=== PATIENT | male | born 1950 | race African-American/Black ===

== ENCOUNTER 2016-12-05 03:03 | Emergency (ER) | payer SELFPAY ==
[~2016-12-05] VITALS: Ht 170.2 cm; Wt 81.6 kg
[~2016-12-05 03:03] MED LIST: AMLODIPINE5 MG PO; ANTIVERT PO; ASPIRIN LOW DOS81 M2 PO; FLEXERIL OR; FLEXERIL PO; FLEXERIL10 MG OR; FLEXERIL10 MG PO; FLEXERIL5 M1 PO; FLEXERIL5 MG PO; LIPITOR20 MG PO; LISINOPRIL10 MG PO; LISINOPRIL2.5 MG; LORTAB 7.5 OR; MECLIZINE25 MG PO; NAPROSYN375 MG PO; NAPROSYN500 MG OR; NAPROSYN500 MG PO; NO HOME MEDS; ONDANSETRON4 MG PO
[2016-12-05 04:47] LABS: HEMOGLOBIN 14.6 g/dl (14.0-18.0); IMMATURE GRANULOCYTES 0.2 % (0.0-1.0); MEAN CELL VOLUME 85.1 fL CALC (80.0-100.0); MEAN CORPUSCULAR HGB 27.6 pG CALC (26.0-32.0); MEAN CORPUSCULAR HGB CONC 32.4 g/L CALC (32.0-36.0); NEUT# 1.92 thou/uL (1.82-7.42); RED BLOOD COUNT 5.29 mill/uL (4.70-6.10); RED CELL DISTRI WIDTH 14.2 % (11.5-15.5)
[2016-12-05 05:01] LABS: ALBUMIN 4.3 g/dL (3.2-5.0); ALKALINE PHOSPHATASE 52 u/l (38-126); ANION GAP 15 (6-22 (CALC)); BUN 15 mg/dL (8-23); BUN/CREATININE RATIO 15 (12-20 (CALC)); CALCIUM 9.1 mg/dL (8.4-10.2); CARBON DIOXIDE 27 mmol/l (22-30); CHLORIDE 107 mmol/l (95-108); GFR > 60 ML/MIN (>=60 (CALC)); GFR FOR AFR.AMER. > 60 ML/MIN (>=60 (CALC)); GLUCOSE 85 mg/dL (82-115); POTASSIUM 4.1 mmol/l (3.5-5.1); SGOT/AST 32 u/l (19-48); SGPT/ALT 35 u/l (11-66); SODIUM 145 mmol/l (137-146); TOTAL PROTEIN 7.4 g/dL (6.3-8.2)
[2016-12-05] MEDS ORDERED: ULTRAM50 M1 PO (06:54)
[2016-12-05 06:57] VITALS: BP 135/66
== END 2016-12-05 06:58 | disposition home or self-care (01) | DRG 103 ==
LOC: ED 03:03
PROVIDERS: Emergency Medicine
DX: R51 Headache (principal); I10 Essential (primary) hypertension; M54.5 Low back pain

== ENCOUNTER 2016-12-13 21:02 | Emergency (ER) | payer SELFPAY ==
[~2016-12-13] VITALS: Ht 170.2 cm; Wt 87.2 kg
[~2016-12-13 21:02] MED LIST changes: +ULTRAM50 M1 PO
[2016-12-13] MEDS ORDERED: LISINOPRIL10 MG PO ×2 (21:35→21:51)
[2016-12-13] MEDS ORDERED: ANTIVERT PO (21:51)
[2016-12-13 22:02] VITALS: BP 131/89
== END 2016-12-13 22:02 | disposition home or self-care (01) | DRG 149 ==
LOC: ED 21:02
DX: R42 Dizziness and giddiness (principal); I10 Essential (primary) hypertension; Z76.0 Encounter for issue of repeat prescription

== ENCOUNTER 2017-06-27 06:07 | Observation (INO) | payer OTHER ==
[~2017-06-27] VITALS: Ht 160 cm; Wt 84.4 kg
[2017-06-27] MEDS ORDERED: B/P MED (06:31)
[2017-06-27] MEDS ORDERED: ARTHRITIS MED (06:31)
[2017-06-27 07:08] LABS: HEMATOCRIT 40.7 % (39.0-50.0); IMMATURE GRANULOCYTES 0.2 % (0.0-1.0); MEAN CELL VOLUME 87.5 fL CALC (80.0-100.0); MEAN CORPUSCULAR HGB CONC 31.9 g/L CALC (32.0-36.0); NEUT# 1.98 thou/uL (1.82-7.42); RED BLOOD COUNT 4.65 mill/uL (4.70-6.10); RED CELL DISTRI WIDTH 14.6 % (11.5-15.5)
[2017-06-27 07:23] LABS: ALBUMIN 3.8 g/dL (3.2-5.0); ALKALINE PHOSPHATASE 78 u/l (38-126); AMYLASE 60 u/l (30-110); ANION GAP 15 (6-22 (CALC)); BUN 14 mg/dL (8-23); BUN/CREATININE RATIO 16 (12-20 (CALC)); CARBON DIOXIDE 27 mmol/l (22-30); CHLORIDE 107 mmol/l (95-108); CREATININE 0.9 mg/dL (0.7-1.3); GFR > 60 ML/MIN (>=60 (CALC)); GFR FOR AFR.AMER. > 60 ML/MIN (>=60 (CALC)); LIPASE 92 u/l (23-300); POTASSIUM 3.6 mmol/l (3.5-5.1); SGOT/AST 54 u/l (19-48); SGPT/ALT 96 u/l (11-66); SODIUM 145 mmol/l (137-146); TOTAL PROTEIN 7.2 g/dL (6.3-8.2)
[2017-06-27 07:35] LABS: MYOGLOBIN 41 ng/mL (0 - 121)
[2017-06-27 09:04] VITALS: BP 163/112
[2017-06-27] MEDS ORDERED: LISINOPRIL10 MG PO (09:33)
[2017-06-27] MEDS ORDERED: DICLOFENAC SODI75 MG PO (09:36)
[2017-06-27 12:18] VITALS: BP 130/58
[2017-06-27 15:41] VITALS: BP 142/86; BP 94/64
[2017-06-27 19:00] VITALS: BP 149/82
[2017-06-27 23:57] VITALS: BP 131/75
[2017-06-28 05:00] VITALS: BP 128/84
[2017-06-28 05:03] LABS: HEMATOCRIT 44.4 % (39.0-50.0); HEMOGLOBIN 14.2 g/dl (14.0-18.0); IMMATURE GRANULOCYTES 0.2 % (0.0-1.0); MEAN CORPUSCULAR HGB 27.5 pG CALC (26.0-32.0); NEUT# 2.85 thou/uL (1.82-7.42); RED BLOOD COUNT 5.16 mill/uL (4.70-6.10); RED CELL DISTRI WIDTH 14.1 % (11.5-15.5)
[2017-06-28 05:15] LABS: ANION GAP 14 (6-22 (CALC)); BUN 14 mg/dL (8-23); BUN/CREATININE RATIO 16 (12-20 (CALC)); CALCULATED LDLCHOLESTEROL 164 mg/dL (62-129 (CALC)); CARBON DIOXIDE 32 mmol/l (22-30); CHLORIDE 99 mmol/l (95-108); CHOLESTEROL HDL RATIO 4.5 (<4.4 (CALC)); CREATININE 0.9 mg/dL (0.7-1.3); GFR > 60 ML/MIN (>=60 (CALC)); GFR FOR AFR.AMER. > 60 ML/MIN (>=60 (CALC)); HDL CHOLESTEROL 51 mg/dL (>=40); POTASSIUM 3.6 mmol/l (3.5-5.1); SODIUM 142 mmol/l (137-146); TOTAL CHOLESTEROL 229 mg/dl (0-199); TOTAL TRIGLYCERIDES 72 mg/dl (30-149); VLDL CHOLESTROL 14 mg/dl (4-45 (CALC))
[2017-06-28 08:24] VITALS: BP 126/64
[2017-06-28 11:00] VITALS: BP 127/79
[2017-06-28 16:00] VITALS: BP 139/85
[2017-06-28 19:00] VITALS: BP 140/85
[2017-06-29] VITALS: BP 137/77
[2017-06-29 04:49] VITALS: BP 123/70
[2017-06-29 05:19] LABS: ANION GAP 15 (6-22 (CALC)); BUN 17 mg/dL (8-23); BUN/CREATININE RATIO 21 (12-20 (CALC)); CARBON DIOXIDE 31 mmol/l (22-30); CHLORIDE 99 mmol/l (95-108); CREATININE 0.8 mg/dL (0.7-1.3); GFR > 60 ML/MIN (>=60 (CALC)); GFR FOR AFR.AMER. > 60 ML/MIN (>=60 (CALC)); POTASSIUM 3.5 mmol/l (3.5-5.1); SODIUM 141 mmol/l (137-146)
[2017-06-29 05:26] LABS: HEMATOCRIT 49.3 % (39.0-50.0); MEAN CELL VOLUME 84.7 fL CALC (80.0-100.0); MEAN CORPUSCULAR HGB 27.5 pG CALC (26.0-32.0); MEAN CORPUSCULAR HGB CONC 32.5 g/L CALC (32.0-36.0); RED BLOOD COUNT 5.82 mill/uL (4.70-6.10); RED CELL DISTRI WIDTH 13.9 % (11.5-15.5)
[2017-06-29 08:35] VITALS: BP 146/82
[2017-06-29 12:00] VITALS: BP 124/78
== END 2017-06-29 15:19 | disposition short-term general hospital (02) | DRG 293 ==
LOC: ED 06:07 → ED-I 08:18 → ED 08:32 → MS2 08:33
PROVIDERS: Emergency Medicine; ADMIT Internal Medicine; ATTEND Internal Medicine
PROC: 3E0234Z Introduction of Serum, Toxoid and Vaccine into Muscle, Percutaneous Approach (ICD-10-PCS; principal; 2017-06-28)
DX: I11.0 Hypertensive heart disease with heart failure (principal); E78.5 Hyperlipidemia, unspecified; I50.21 Acute systolic (congestive) heart failure; R07.9 Chest pain, unspecified; M19.90 Unspecified osteoarthritis, unspecified site; F10.20 Alcohol dependence, uncomplicated; Z23 Encounter for immunization; Z91.14 Patient's other noncompliance with medication regimen
CPT/HCPCS: G0378

== ENCOUNTER 2017-11-26 13:30 | Emergency (ER) | payer SELFPAY ==
[~2017-11-26] VITALS: Ht 160 cm; Wt 81.0 kg
[~2017-11-26 13:30] MED LIST changes: +ARTHRITIS MED; +B/P MED; +DICLOFENAC SODI75 MG PO
[2017-11-26] MEDS ORDERED: FLEXERIL PO (14:06)
[2017-11-26] MEDS ORDERED: TORADOL PO (14:06)
[2017-11-26] MEDS ORDERED: MEDDOSEPAK PO (14:06)
[2017-11-26 14:20] VITALS: BP 138/86
== END 2017-11-26 14:20 | disposition home or self-care (01) | DRG 563 ==
LOC: ED 13:30
DX: S39.012A Strain of muscle, fascia and tendon of lower back, initial encounter (principal); I10 Essential (primary) hypertension; E78.5 Hyperlipidemia, unspecified; M19.90 Unspecified osteoarthritis, unspecified site; X50.0XXA Overexertion from strenuous movement or load, initial encounter; Y93.B3 Activity, free weights; Y92.39 Other specified sports and athletic area as the place of occurrence of the external cause

== ENCOUNTER 2018-04-14 06:18 | Emergency (ER) | payer SELFPAY ==
[~2018-04-14] VITALS: Ht 170.2 cm; Wt 77.2 kg
[~2018-04-14 06:18] MED LIST changes: +MEDDOSEPAK PO; +TORADOL PO
[2018-04-14] MEDS ORDERED: TORADOL PO (06:52)
[2018-04-14 07:17] VITALS: BP 146/75
== END 2018-04-14 07:19 | disposition home or self-care (01) | DRG 563 ==
LOC: ED 06:18
DX: S39.012A Strain of muscle, fascia and tendon of lower back, initial encounter (principal); I10 Essential (primary) hypertension; M19.90 Unspecified osteoarthritis, unspecified site; E78.5 Hyperlipidemia, unspecified; X58.XXXA Exposure to other specified factors, initial encounter

== ENCOUNTER 2018-07-26 08:27 | Emergency (ER) | payer SELFPAY ==
[~2018-07-26] VITALS: Ht 170.2 cm; Wt 80.0 kg
[2018-07-26] MEDS ORDERED: CYCLOBENZAPR5 MG PO (08:40)
[2018-07-26] MEDS ORDERED: MOTRIN400 MG PO (08:40)
[2018-07-26 09:06] VITALS: BP 128/73
== END 2018-07-26 09:12 | disposition home or self-care (01) | DRG 563 ==
LOC: ED 08:27
DX: S39.012A Strain of muscle, fascia and tendon of lower back, initial encounter (principal); I10 Essential (primary) hypertension; X58.XXXA Exposure to other specified factors, initial encounter

== ENCOUNTER 2018-10-15 08:49 | Emergency (ER) | payer SELFPAY ==
[~2018-10-15] VITALS: Ht 170.2 cm; Wt 80.0 kg
[~2018-10-15 08:49] MED LIST changes: +CYCLOBENZAPR5 MG PO; +MOTRIN400 MG PO
[2018-10-15 09:23] LABS: HEMATOCRIT 24.8 % (39.0-50.0); HEMOGLOBIN 7.7 g/dl (14.0-18.0); IMMATURE GRANULOCYTES 0.3 % (0.0-5.0); MEAN CELL VOLUME 88.9 fL CALC (80.0-100.0); MEAN CORPUSCULAR HGB 27.6 pG CALC (26.0-32.0); NEUT# 3.63 thou/uL (1.82-7.42); RED BLOOD COUNT 2.79 mill/uL (4.70-6.10); RED CELL DISTRI WIDTH 16.1 % (11.5-15.5)
[2018-10-15 10:04] LABS: ALBUMIN 3.8 g/dL (3.2-5.0); ALKALINE PHOSPHATASE 54 u/l (38-126); ANION GAP 11 (6-22 (CALC)); BUN 14 mg/dL (8-23); BUN/CREATININE RATIO 16 (12-20 (CALC)); CARBON DIOXIDE 28 mmol/l (22-30); CHLORIDE 107 mmol/l (95-108); CREATININE 0.9 mg/dL (0.7-1.3); ETHYL ALCOHOL 0 mg/dl (0-30); GFR > 60 ML/MIN (>=60 (CALC)); GFR FOR AFR.AMER. > 60 ML/MIN (>=60 (CALC)); LIPASE 181 u/l (23-300); POTASSIUM 4.2 mmol/l (3.5-5.1); SGOT/AST 44 u/l (19-48); SODIUM 141 mmol/l (137-146); TOTAL PROTEIN 6.6 g/dL (6.3-8.2)
[2018-10-15 10:06] LABS: BARBITURATES NEGATIVE (NEGATIVE); COCAINE NEGATIVE (NEGATIVE); METHADONE NEGATIVE (NEGATIVE); OXCYCODONE NEGATIVE (NEGATIVE); TETRAHYDROCANNABIONOL NEGATIVE (NEGATIVE); TRICYLIC ANTIDEPRESSANTS NEGATIVE (NEGATIVE)
[2018-10-15 10:07] LABS: BILIRUBIN, TOTAL 0.5 mg/dL (0.0-1.4)
[2018-10-15 11:36] LABS: HEMATOCRIT 24.3 % (39.0-50.0); HEMOGLOBIN 7.5 g/dl (14.0-18.0); IMMATURE GRANULOCYTES 0.3 % (0.0-5.0); MEAN CORPUSCULAR HGB 27.5 pG CALC (26.0-32.0); MEAN CORPUSCULAR HGB CONC 30.9 g/L CALC (32.0-36.0); NEUT# 3.74 thou/uL (1.82-7.42); RED BLOOD COUNT 2.73 mill/uL (4.70-6.10)
[2018-10-15 12:15] LABS: INTERNATIONAL NORMALIZED RATIO 1.1 RATIO (0.7-1.3); PROTHROMBIN TIME 11.1 SECONDS (9.0-12.5)
[2018-10-15 12:55] VITALS: BP 181/86
== END 2018-10-15 12:54 | disposition short-term general hospital (02) | DRG 812 ==
LOC: ED 08:49 → ED-I 11:50 → ED 12:54
PROVIDERS: Emergency Medicine
DX: D64.9 Anemia, unspecified (principal); R07.9 Chest pain, unspecified; I10 Essential (primary) hypertension
CPT/HCPCS: S0164

== ENCOUNTER 2018-12-16 07:01 | Emergency (ER) | payer SELFPAY ==
[~2018-12-16] VITALS: Ht 170.2 cm; Wt 86.0 kg
[2018-12-16] MEDS ORDERED: NAPROXEN500 MG PO (07:28)
[2018-12-16] MEDS ORDERED: FLEXERIL PO (07:28)
[2018-12-16 07:36] VITALS: BP 127/85
== END 2018-12-16 07:49 | disposition home or self-care (01) | DRG 552 ==
LOC: ED 07:01
DX: S33.5XXA Sprain of ligaments of lumbar spine, initial encounter (principal); I10 Essential (primary) hypertension; X58.XXXA Exposure to other specified factors, initial encounter

== ENCOUNTER 2019-04-20 | Observation (INO) | payer SELFPAY ==
[2019-04-19 22:20] LABS: IMMATURE GRANULOCYTES 0.3 % (0.0-5.0); MEAN CELL VOLUME 86.2 fL CALC (80.0-100.0); MEAN CORPUSCULAR HGB 26.9 pG CALC (26.0-32.0); MEAN CORPUSCULAR HGB CONC 31.2 g/L CALC (32.0-36.0); NEUT# 4.2 thou/uL (1.82-7.42); RED BLOOD COUNT 4.5 mill/uL (4.70-6.10); RED CELL DISTRI WIDTH 14.6 % (11.5-15.5)
[2019-04-19 22:21] LABS: HEMATOCRIT 38.8 % (39.0-50.0); HEMOGLOBIN 12.1 g/dl (14.0-18.0)
--- NOTE | 2019-04-19 22:29 | NUR ---
PT GIVEN BLANKET AND CALL ROBERTO. PLAN OF CARE UPDATED WITH PT
[2019-04-19 22:39] LABS: ACT PARTIAL THROMBO TIME 26.5 SECONDS (20.0-32.5); ALKALINE PHOSPHATASE 87 u/l (38-126); AMYLASE 48 u/l (30-110); ANION GAP 9 (6-22 (CALC)); BILIRUBIN, TOTAL 0.7 mg/dL (0.0-1.4); BUN 15 mg/dL (8-23); BUN/CREATININE RATIO 17 (12-20 (CALC)); CARBON DIOXIDE 29 mmol/l (22-30); CHLORIDE 106 mmol/l (95-108); CREATININE 0.9 mg/dL (0.7-1.3); GFR > 60 ML/MIN (>=60 (CALC)); GFR FOR AFR.AMER. > 60 ML/MIN (>=60 (CALC)); INTERNATIONAL NORMALIZED RATIO 1.1 RATIO (0.7-1.3); LIPASE 79 u/l (23-300); POTASSIUM 4.2 mmol/l (3.5-5.1); PROTHROMBIN TIME 11.6 SECONDS (9.0-12.5); SGOT/AST 55 u/l (19-48); SODIUM 140 mmol/l (137-146); TOTAL PROTEIN 6.9 g/dL (6.3-8.2)
[2019-04-19 22:51] LABS: MYOGLOBIN 42 ng/mL (0 - 121)
--- NOTE | 2019-04-19 23:05 | NUR ---
PT DENIES COMPLAINTS. RESPS EVEN, UNALBBORED.
[2019-04-20] VITALS (9 sets, daily range): BP systolic 119–156; BP diastolic 62–90
[~2019-04-20] MED LIST changes: +ATORVASTATIN CA40 MG PO; +IRON (FERROUS S50 MG PO; +NAPROXEN500 MG PO; +SPIRONOLACT25 MG PO
--- NOTE | 2019-04-20 00:25 | NUR ---
PT DENIES COMPLAINTS. PT STATES HIS PAIN IS GONE AND HE FEELS MUCH BETTER. PT ABLE TO URINATE 800CC
--- NOTE | 2019-04-20 02:14 | NUR ---
PT CONTINUES TO DENY COMPLAINTS
--- NOTE | 2019-04-20 03:05 | NUR ---
PATIENT ARRIVED VIA WHEELCHAIR. HE ARRIVED AT 0305. RESP EVEN AND UNLABORED. NO S/S OF DISTRESS NOTED. PATIENT ORIENTED TO ROOM, CALL LIGHT, AND TV. PLAN OF CARE DISCUSSED. PATIENT INFORMED TO CALL WITH ANY QUESTIONS OR CONCERNS. FALL PRECAUTIONS IN PLACE.
--- NOTE | 2019-04-20 07:10 | NUR ---
DR STARKS NOTIFIED OF ELEVATED TROP 0.133. REPEAT EKG ORDERED. WAITING ON NEW ORDERS.
--- NOTE | 2019-04-20 10:55 | NUR ---
DAVID MILLS, @BEDSIDE ASSESSING PT.
--- NOTE | 2019-04-20 12:49 | NUR ---
DR STARKS @BEDSIDE ASSESSING PT.
[2019-04-20] MEDS ORDERED: CARVEDILOL6.25 MG PO ×2 (12:56→12:57)
[2019-04-20] MEDS ORDERED: ALDACTONE25 MG PO (12:56)
[2019-04-20] MEDS ORDERED: ATORVASTATIN CA40 MG PO (12:57)
[2019-04-20] MEDS ORDERED: SPIRONOLACT25 MG PO (12:58)
[2019-04-20] MEDS ORDERED: OMEPRAZOLE20 MG PO (12:59)
--- NOTE | 2019-04-20 13:37 | NUR ---
PT GIVEN TRAY FROM [employer] FOR LUNCH.
--- NOTE | 2019-04-20 14:00 | NUR ---
PT EDUCATED ON DC INSTRUCTIONS, INCLUDING 1 NEW RX, 3 REFILL RX, & 2 STOP RX. IV DC'D, TIP INTACT, DRESSING APPLIED.
--- NOTE | 2019-04-20 14:14 | NUR ---
PT DC FROM ICU BY RICARDO WITH STAFF IN STABLE CONDITION, WITH ALL BELONGINGS.
== END 2019-04-20 14:14 | disposition home or self-care (01) | DRG 313 ==
PROVIDERS: Emergency Medicine; ADMIT Internal Medicine
DX: R07.9 Chest pain, unspecified (principal); I10 Essential (primary) hypertension; E78.5 Hyperlipidemia, unspecified; T46.5X6A Underdosing of other antihypertensive drugs, initial encounter; Z91.128 Patient's intentional underdosing of medication regimen for other reason
CPT/HCPCS: Q9967; S0164

== ENCOUNTER 2019-06-10 | Emergency (ER) | payer SELFPAY ==
[~2019-06-10] MED LIST changes: +ALDACTONE25 MG PO; +CARVEDILOL6.25 MG PO; +OMEPRAZOLE20 MG PO
[2019-06-10 19:34] LABS: HEMATOCRIT 41.5 % (39.0-50.0); HEMOGLOBIN 12.9 g/dl (14.0-18.0); IMMATURE GRANULOCYTES 0.2 % (0.0-5.0); MEAN CELL VOLUME 85.2 fL CALC (80.0-100.0); MEAN CORPUSCULAR HGB 26.5 pG CALC (26.0-32.0); MEAN CORPUSCULAR HGB CONC 31.1 g/dL CAL (32.0-36.0); NEUT# 3.12 thou/uL (1.82-7.42); RED BLOOD COUNT 4.87 mill/uL (4.70-6.10); RED CELL DISTRI WIDTH 14.1 % (11.5-15.5)
[2019-06-10 19:44] LABS: INTERNATIONAL NORMALIZED RATIO 1.3 RATIO (0.7-1.3); PROTHROMBIN TIME 13.5 SECONDS (9.0-12.5)
[2019-06-10 19:45] LABS: ALBUMIN 4.5 g/dL (3.2-5.0); ALKALINE PHOSPHATASE 104 u/l (38-126); ANION GAP 14 (6-22 (CALC)); BUN 16 mg/dL (8-23); BUN/CREATININE RATIO 14 (12-20 (CALC)); CARBON DIOXIDE 24 mmol/l (22-30); CHLORIDE 105 mmol/l (95-108); CREATININE 1.1 mg/dL (0.7-1.3); GFR > 60 ML/MIN (>=60 (CALC)); GFR FOR AFR.AMER. > 60 ML/MIN (>=60 (CALC)); POTASSIUM 4.3 mmol/l (3.5-5.1); SGOT/AST 52 u/l (19-48); SODIUM 139 mmol/l (137-146); TOTAL PROTEIN 8.2 g/dL (6.3-8.2)
[2019-06-10 19:46] LABS: BILIRUBIN, TOTAL 1.2 mg/dL (0.0-1.4)
[2019-06-10 19:58] LABS: MYOGLOBIN 49 ng/mL (0 - 121)
[2019-06-10] MEDS ORDERED: LASIX 20 MG TAB20 MG PO (23:32)
== END 2019-06-11 00:27 | disposition home or self-care (01) | DRG 293 ==
PROVIDERS: Emergency Medicine
DX: I11.0 Hypertensive heart disease with heart failure (principal); I50.9 Heart failure, unspecified

== ENCOUNTER 2019-07-24 08:32 | Emergency (ER) | payer SELFPAY ==
[~2019-07-24 08:32] MED LIST changes: +LASIX 20 MG TAB20 MG PO
[2019-07-24] MEDS ORDERED: VOLTAREN1%GEL TOP (09:13)
[2019-07-24] MEDS ORDERED: MOTRIN400 MG PO (09:18)
[2019-07-24 09:24] VITALS: BP 118/82
== END 2019-07-24 09:35 | disposition home or self-care (01) | DRG 552 ==
LOC: ED 08:32
DX: M54.5 Low back pain (principal); I10 Essential (primary) hypertension

== ENCOUNTER 2020-01-01 13:35 | Emergency (ER) | payer SELFPAY ==
[~2020-01-01] VITALS: Ht 170.2 cm; Wt 88.0 kg
[~2020-01-01 13:35] MED LIST changes: +VOLTAREN1%GEL TOP
[2020-01-01] MEDS ORDERED: NAPROXEN500 MG PO (14:23)
[2020-01-01 14:29] VITALS: BP 125/62
== END 2020-01-01 14:31 | disposition home or self-care (01) | DRG 605 ==
LOC: ED 13:35
DX: S20.211A Contusion of right front wall of thorax, initial encounter (principal); I10 Essential (primary) hypertension; E78.5 Hyperlipidemia, unspecified; Y04.2XXA Assault by strike against or bumped into by another person, initial encounter; Y92.009 Unspecified place in unspecified non-institutional (private) residence as the place of occurrence of the external cause

== ENCOUNTER 2020-02-10 03:41 | Observation (INO) | payer SELFPAY ==
[~2020-02-10] VITALS: Ht 170.2 cm; Wt 89.2 kg
--- NOTE | 2020-02-10 03:45 | NUR ---
TO ROOM 12 FOR TRIAGE AT BEDSIDE. NAD PT IS A POOR HISTORIAN.
--- NOTE | 2020-02-10 04:10 | NUR ---
A/O M WITH C/O BURPING INTERMITTENTLY ONSET LAST PM DENIES SOB NO NAUSEA NO SWEATS W/D SKIN SR NO ST T CHANGES NO ECTOPIC BEATS
[2020-02-10 04:27] LABS: URINE BILIRUBIN - DIPSTICK NEGATIVE (NEGATIVE); URINE BLOOD DIPSTICK NEGATIVE (NEGATIVE); URINE COLOR YELLOW; URINE GLUCOSE - DIPSTICK NEGATIVE (NEGATIVE); URINE KETONE NEGATIVE (NEGATIVE); URINE LEUK ESTERASE NEGATIVE (NEGATIVE); URINE NITRITE - DIPSTICK NEGATIVE (Negative); URINE PROTEIN - DIPSTICK NEGATIVE (NEG-TRACE); URINE UROBILINOGEN - DIPSTICK 0.2 E.U./dL (0.2)
[2020-02-10 04:32] LABS: IMMATURE GRANULOCYTES 0.2 % (0.0-5.0); MEAN CORPUSCULAR HGB 27.6 pG CALC (26.0-32.0); MEAN CORPUSCULAR HGB CONC 32.1 g/dL CAL (32.0-36.0); NEUT# 2.19 thou/uL (1.82-7.42); RED BLOOD COUNT 4.49 mill/uL (4.70-6.10); RED CELL DISTRI WIDTH 13.7 % (11.5-15.5)
[2020-02-10 04:34] LABS: HEMATOCRIT 38.6 % (39.0-50.0); HEMOGLOBIN 12.4 g/dl (14.0-18.0)
[2020-02-10 04:41] LABS: ALBUMIN 4.1 g/dL (3.2-5.0); ALKALINE PHOSPHATASE 58 u/l (38-126); AMYLASE 76 u/l (30-110); ANION GAP 7 (6-22 (CALC)); BILIRUBIN, TOTAL 0.6 mg/dL (0.0-1.4); BUN 17 mg/dL (8-23); BUN/CREATININE RATIO 19 (12-20 (CALC)); CARBON DIOXIDE 31 mmol/l (22-30); CHLORIDE 105 mmol/l (95-108); CREATININE 0.9 mg/dL (0.7-1.3); GFR > 60 ML/MIN (>=60 (CALC)); GFR FOR AFR.AMER. > 60 ML/MIN (>=60 (CALC)); LIPASE 116 u/l (23-300); POTASSIUM 4.4 mmol/l (3.5-5.1); SGOT/AST 40 u/l (19-48); SODIUM 138 mmol/l (137-146); TOTAL PROTEIN 6.8 g/dL (6.3-8.2)
[2020-02-10 04:53] LABS: MYOGLOBIN 54 ng/mL (0 - 121)
--- NOTE | 2020-02-10 05:40 | NUR ---
PT IS ASLEEP W/D SKIN SR NO ST T CHANGES NO ECTOPY
--- NOTE | 2020-02-10 06:30 | NUR ---
NASAL SWAB FOR CORONAVIRUS ANTIBOSDIES COLLECTED SR NO ST T CHANGES NO CP W/D SKIN
--- NOTE | 2020-02-10 06:53 | NUR ---
RECIEVED REPORT FROM MARILIN
--- NOTE | 2020-02-10 08:05 | NUR ---
TRANSPORTED PT TO MED SURG IN W/C STABLE AND IN NO DISTRESS. CARE ASSUMED TO DARRELL Admission Note Report Given to: DARRELL Transported by: X Wheelchair Stretcher Transported with: X Nurse Transporter X Patent IV O2 X Convict Guard Location: ICU X [facility]
--- NOTE | 2020-02-10 08:06 | NUR ---
GAVE REPORT TO DARRELL
[2020-02-10 08:20] VITALS: BP 107/53
--- NOTE | 2020-02-10 08:20 | NUR ---
RECIEVED REPORT FROM MANUEL HERNANDEZ. PT ARRIVED TO [facility] ROOM 268 VIA WHEELCHAIR ACCOMPAINED BY ER STAFF. INTRODUCED SELF TO PT AND DISCUSSED POC. PT IS A/O X3. ASSESSMENT AND VITALS COMPLETED. BP 107/53, HR 70, O2 97% ON ROOM AIR. RESPIRATIONS ARE EVEN AND UNLABORED WITH NO DISTRESS NOTED. LUNG SOUNDS ARE CLEAR. HEART RHYTHM IS NORMAL WITH TELE IN PLACE, SR PER ER MONITORING. BOWEL SOUND SARE ACTIVE IN ALL QUADRANTS, LAST REPORTED BM 02/09/2020. RADIAL AND PEDAL PULSES STRONG. #20G IN RAC FLUSHED, SITE APPEARS HEALTHY AND PATENT. JOSE HOSE APPLIED. SKIN IS WARM AND DRY WITH NO BREAK DOWN NOTED. PT DENIES ANY ALLERGIES, ALLERGY BAND APPLIED. PT DENIES ANY PAINS OR NEEDS AT THIS TIME. PT ORIENTED TO ROOM AND CALL LIGHT SYSTEM. ALL SAFETY PRECAUTIONS ARE IN PLACE WITH CALL LIGHT IN REACH. WILL CONTINUE TO MONITOR.
[2020-02-10 10:30] VITALS: BP 103/58
--- NOTE | 2020-02-10 11:37 | NUR ---
PT RESTING IN SEMI FOWLERS POSITION TAKING ON PHONE UPON ENTERING ROOM. RESPIRATIONS ARE EVEN AND UNLABORED ON ROOM AIR. TELE MONITORING IN PLACE. PT DENIES OF ANY PAINS OR DISCOMFORTS AT THIS TIME. ALL SAFTEY PRECAUTIONS ARE IN PLACE WTIH CALL LIGHT IN REACH. WILL CONTINUE TO MONITOR
--- NOTE | 2020-02-10 13:11 | NUR ---
LAB UNABLE TO OBTAIN BLOOD DRAW. MANAGER CARDIOVASCULAR ATTEMPTED. BLOOD OBTAINED. PT TOELRATED WELL. SENT TO LAB
--- NOTE | 2020-02-10 14:19 | NUR ---
PT REQUEST FOR HO TO BE TAKEN DOWN STAIRS. KEYS TO TAKEN DOWN BY STAFF.
[2020-02-10 15:00] VITALS: BP 117/67
--- NOTE | 2020-02-10 15:39 | NUR ---
PT LAYING IN LOW FOWLERS POSITION. RESPIRATIONS ARE EVEN AND UNLABORED ON ROOM AIR. TELE MONITORING IN PLACE. PT REQUEST ORANGE JUICE AND CRACKERS. PT DENIES OF ANY PAIN OR DISCOMFORTS AT THIS TIME. ALL SAFETY PRECAUTIONS ARE IN PLACE WITH CALL LIGHT IN REACH. WILL CONTINUE.
[2020-02-10 18:38] VITALS: BP 123/71
--- NOTE | 2020-02-10 20:00 | NUR ---
PT CALLED TO C/O EKG STICKERS THAT WERE LEFT ON HIM WERE BOTHERING HIM. I ASSISTED HIM IN REMOVING SAID STICKERS FOR COMFORT. ASSESSMENT COMPLETED AND SNACK PROVIDED PER REQUEST. CALL LIGHT AT SIDE AND PT ENCOURAGED TO CALL NEEDS ARISE.
--- NOTE | 2020-02-10 21:00 | NUR ---
PT MEDICATED ORDERS PROVIDE. DENIES ANY OTHER NEEDS. NO S/O DISTRESS NOTED. CALL LIGHT AT SIDE.
--- NOTE | 2020-02-10 22:31 | NUR ---
PT MEDICATED ORDERS PROVIDE. PT IS IN BED WITH LIGHTS OFF, TV ON LOW TALKING ON PHONE. DENIES ANY OTHER NEEDS AT THIS TIME. CALL LIGHT AT SIDE.
[2020-02-11 00:03] VITALS: BP 112/60
--- NOTE | 2020-02-11 01:26 | NUR ---
PT MEDICATED FOR SLEEP, DENIES ANY OTHER NEEDS AT THIS TIME. CALL LIGHT AT BEDSIDE.
[2020-02-11 04:04] VITALS: BP 134/72
--- NOTE | 2020-02-11 04:40 | NUR ---
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 PT DENIES ANY OTHER NEEDS. CALL LIGHT AT SIDE.
[2020-02-11 05:04] LABS: CHOLESTEROL HDL RATIO 3.3 (<4.4 (CALC)); MAGNESIUM 2.1 mg/dL (1.6-2.3)
--- NOTE | 2020-02-11 06:55 | NUR ---
REPORT RECEIVED FROM MANUEL RODRIGUEZ. PT RESTING IN BED NO S.S OF DISTRESS AT THIS TIME. SAFETY PRCAUTIONS IN PLACE. WILL CONTINUE TO MONITOR.
[2020-02-11] MEDS ORDERED: ALDACTONE25 MG PO (08:42)
[2020-02-11] MEDS ORDERED: ATORVASTATIN CA40 MG PO (08:42)
[2020-02-11] MEDS ORDERED: CARVEDILOL6.25 MG PO (08:43)
[2020-02-11] MEDS ORDERED: FUROSEMIDE20 MG PO (08:43)
[2020-02-11] MEDS ORDERED: LISINOPRIL10 MG PO (08:43)
[2020-02-11 08:54] VITALS: BP 132/91
--- NOTE | 2020-02-11 08:55 | NUR ---
PT RESTING IN BED, RESPIRATIONS ARE EVEN AND UNLABORED ON RA. LUNGS SOUND CLEAR. PEDAL PULSES ARE STRONG. PT DENIES ANY PAIN OR DISCOMFORT AT THIS TIME. SAFEY PRECAUTIONS IN PLACE. WILL CONTINUE TO MONITOR.
[2020-02-11] MEDS ORDERED: PROTONIX40 M2 PO (10:06)
[2020-02-11 11:00] VITALS: BP 115/56
--- NOTE | 2020-02-11 12:06 | NUR ---
PT SITTING ON THE EDGE OF THE BED, ALERT AND ORIENTED. PT PROVIDED WITH DISCHARGE PACKET. PT DENIES ANY QUESTIONS AT THIS TIME. TELE REMOVED. IV REMOVED CATHETER INTACT. SAFETY PRECAUTIONS IN PLACE. WILL CONTINUE TO MONITOR
--- NOTE | 2020-02-11 12:15 | NUR ---
Discharge instructions given. Patient verbalizes understanding of same. Discharged in stable condition via Wheelchair to Home with family. All belongings sent with pt.
== END 2020-02-11 12:10 | disposition home or self-care (01) | DRG 313 ==
LOC: ED 03:41 → ED-I 06:21 → ED 06:49 → MS2 06:50
PROVIDERS: Emergency Medicine; ADMIT Internal Medicine; ATTEND Internal Medicine
DX: R07.9 Chest pain, unspecified (principal); K21.9 Gastro-esophageal reflux disease without esophagitis; I10 Essential (primary) hypertension; E78.5 Hyperlipidemia, unspecified; Z79.899 Other long term (current) drug therapy; Z20.828 Contact with and (suspected) exposure to other viral communicable diseases
CPT/HCPCS: G0378; J1650; S0164

== ENCOUNTER 2020-04-14 14:40 | Emergency (ER) | payer SELFPAY ==
[~2020-04-14] VITALS: Ht 170.2 cm; Wt 86.4 kg
[~2020-04-14 14:40] MED LIST changes: +FUROSEMIDE20 MG PO; +PROTONIX40 M2 PO
[2020-04-14] MEDS ORDERED: NAPROXEN500 MG PO (15:46)
[2020-04-14] MEDS ORDERED: AMOXICILLIN500 MG PO (15:46)
[2020-04-14] MEDS ORDERED: CYCLOBENZAPRINE10 MG PO (15:46)
[2020-04-14 16:07] VITALS: BP 138/77
== END 2020-04-14 16:16 | disposition home or self-care (01) | DRG 552 ==
LOC: ED 14:40
DX: M47.816 Spondylosis without myelopathy or radiculopathy, lumbar region (principal); K08.89 Other specified disorders of teeth and supporting structures; I10 Essential (primary) hypertension; E78.5 Hyperlipidemia, unspecified

== ENCOUNTER 2020-08-17 11:05 | Emergency (ER) | payer MEDICAID ==
[~2020-08-17] VITALS: Ht 170.2 cm; Wt 81.8 kg
[~2020-08-17 11:05] MED LIST changes: +AMOXICILLIN500 MG PO; +CYCLOBENZAPRINE10 MG PO
[2020-08-17 12:07] LABS: HEMATOCRIT 39.1 % (39.0-50.0); HEMOGLOBIN 12.3 g/dl (14.0-18.0); MEAN CELL VOLUME 84.6 fL CALC (80.0-100.0); MEAN CORPUSCULAR HGB 26.6 pG CALC (26.0-32.0); MEAN CORPUSCULAR HGB CONC 31.5 g/dL CAL (32.0-36.0); NEUT# 3.36 thou/uL (1.82-7.42); RED BLOOD COUNT 4.62 mill/uL (4.70-6.10); RED CELL DISTRI WIDTH 14.4 % (11.5-15.5)
[2020-08-17 12:41] LABS: ALBUMIN 4.3 g/dL (3.2-5.0); ALKALINE PHOSPHATASE 68 u/l (38-126); ANION GAP 12 (6-22 (CALC)); BUN 18 mg/dL (8-23); BUN/CREATININE RATIO 16 (12-20 (CALC)); CARBON DIOXIDE 30 mmol/l (22-30); CHLORIDE 101 mmol/l (95-108); CREATININE 1.1 mg/dL (0.7-1.3); GFR > 60 ML/MIN (>=60 (CALC)); GFR FOR AFR.AMER. > 60 ML/MIN (>=60 (CALC)); LIPASE 148 u/l (23-300); POTASSIUM 4.6 mmol/l (3.5-5.1); SGOT/AST 41 u/l (19-48); SODIUM 139 mmol/l (137-146); TOTAL PROTEIN 7.8 g/dL (6.3-8.2)
[2020-08-17 12:47] LABS: BILIRUBIN, TOTAL 0.4 mg/dL (0.0-1.4)
[2020-08-17 13:10] LABS: URINE BILIRUBIN - DIPSTICK NEGATIVE (NEGATIVE); URINE BLOOD DIPSTICK NEGATIVE (NEGATIVE); URINE COLOR YELLOW; URINE GLUCOSE - DIPSTICK NEGATIVE (NEGATIVE); URINE KETONE NEGATIVE (NEGATIVE); URINE LEUK ESTERASE NEGATIVE (NEGATIVE); URINE PH 6.5 (4.5-8.0); URINE PROTEIN - DIPSTICK NEGATIVE (NEG-TRACE); URINE SPECIFIC GRAVITY 1.015; URINE UROBILINOGEN - DIPSTICK 0.2 E.U./dL (0.2)
[2020-08-17 13:12] LABS: URINE NITRITE - DIPSTICK NEGATIVE (Negative)
[2020-08-17] MEDS ORDERED: HYOSCYAMINE0.125 M3 PO (13:19)
[2020-08-17 13:57] VITALS: BP 115/65
== END 2020-08-17 13:58 | disposition home or self-care (01) | DRG 392 ==
LOC: ED 11:05
PROVIDERS: Family Medicine
DX: R10.84 Generalized abdominal pain (principal); I10 Essential (primary) hypertension; E78.5 Hyperlipidemia, unspecified
CPT/HCPCS: Q9967

== ENCOUNTER 2020-08-21 23:59 | Emergency (ER) | payer MEDICAID ==
[~2020-08-21] VITALS: Ht 170.2 cm; Wt 86.0 kg
[~2020-08-21 23:59] MED LIST changes: +HYOSCYAMINE0.125 M3 PO
[2020-08-22 01:01] LABS: HEMATOCRIT 34.1 % (39.0-50.0); HEMOGLOBIN 10.6 g/dl (14.0-18.0); IMMATURE GRANULOCYTES 0.1 % (0.0-5.0); MEAN CELL VOLUME 86.1 fL CALC (80.0-100.0); MEAN CORPUSCULAR HGB 26.8 pG CALC (26.0-32.0); MEAN CORPUSCULAR HGB CONC 31.1 g/dL CAL (32.0-36.0); NEUT# 3.56 thou/uL (1.82-7.42); RED BLOOD COUNT 3.96 mill/uL (4.70-6.10); RED CELL DISTRI WIDTH 14.5 % (11.5-15.5)
[2020-08-22 01:16] LABS: ALBUMIN 3.7 g/dL (3.2-5.0); ALKALINE PHOSPHATASE 46 u/l (38-126); AMYLASE 75 u/l (30-110); ANION GAP 12 (6-22 (CALC)); BILIRUBIN, TOTAL 0.3 mg/dL (0.0-1.4); BUN 18 mg/dL (8-23); BUN/CREATININE RATIO 17 (12-20 (CALC)); CARBON DIOXIDE 29 mmol/l (22-30); CHLORIDE 102 mmol/l (95-108); CREATININE 1.1 mg/dL (0.7-1.3); GFR > 60 ML/MIN (>=60 (CALC)); GFR FOR AFR.AMER. > 60 ML/MIN (>=60 (CALC)); LIPASE 121 u/l (23-300); POTASSIUM 4.4 mmol/l (3.5-5.1); SGOT/AST 33 u/l (19-48); SODIUM 139 mmol/l (137-146); TOTAL PROTEIN 6.5 g/dL (6.3-8.2)
[2020-08-22 01:19] LABS: ACT PARTIAL THROMBO TIME 23.6 SECONDS (20.0-32.5); INTERNATIONAL NORMALIZED RATIO 1.1 RATIO (0.7-1.3); PROTHROMBIN TIME 11.5 SECONDS (9.0-12.5)
[2020-08-22] MEDS ORDERED: LIPITOR40 M1 PO (03:25)
[2020-08-22] MEDS ORDERED: LASIX20 MG PO (03:25)
[2020-08-22] MEDS ORDERED: CARVEDILOL6.25 MG PO (03:25)
[2020-08-22] MEDS ORDERED: PROTONIX40 M2 PO (03:26)
[2020-08-22] MEDS ORDERED: LISINOPRIL10 MG PO (03:26)
[2020-08-22 03:31] LABS: URINE BILIRUBIN - DIPSTICK NEGATIVE (NEGATIVE); URINE BLOOD DIPSTICK NEGATIVE (NEGATIVE); URINE COLOR YELLOW; URINE GLUCOSE - DIPSTICK NEGATIVE (NEGATIVE); URINE KETONE NEGATIVE (NEGATIVE); URINE LEUK ESTERASE NEGATIVE (NEGATIVE); URINE PROTEIN - DIPSTICK NEGATIVE (NEG-TRACE); URINE UROBILINOGEN - DIPSTICK 0.2 E.U./dL (0.2)
[2020-08-22 03:32] LABS: URINE NITRITE - DIPSTICK NEGATIVE (Negative)
[2020-08-22 05:10] VITALS: BP 100/58
== END 2020-08-22 05:20 | disposition short-term general hospital (02) ==
LOC: ED 23:59
PROVIDERS: Emergency Medicine
DX: K92.2 Gastrointestinal hemorrhage, unspecified (principal); D64.9 Anemia, unspecified; R10.9 Unspecified abdominal pain; I10 Essential (primary) hypertension; E78.5 Hyperlipidemia, unspecified
CPT/HCPCS: Q9967; S0164

== ENCOUNTER 2020-11-12 07:11 | Emergency (ER) | payer SELFPAY ==
[~2020-11-12] VITALS: Ht 170.2 cm; Wt 72.0 kg
[~2020-11-12 07:11] MED LIST changes: +LASIX20 MG PO; +LIPITOR40 M1 PO
[2020-11-12] MEDS ORDERED: FLEXERIL5 M1 PO (08:39)
[2020-11-12 08:55] VITALS: BP 125/69
== END 2020-11-12 08:55 | disposition home or self-care (01) | DRG 552 ==
LOC: ED 07:11
DX: M54.5 Low back pain (principal); R51.9 Headache, unspecified; I10 Essential (primary) hypertension; E78.5 Hyperlipidemia, unspecified

== ENCOUNTER 2021-06-07 07:25 | Emergency (ER) | payer SELFPAY ==
[~2021-06-07] VITALS: Ht 170.2 cm; Wt 85.7 kg
[2021-06-07 07:34] VITALS: BP 149/83
[2021-06-07 08:01] VITALS: BP 145/87
[2021-06-07] MEDS ORDERED: CYCLOBENZAPRINE10 MG PO (08:02)
[2021-06-07] MEDS ORDERED: NAPROXEN500 MG PO (08:02)
[2021-06-07 08:11] VITALS: BP 145/87
== END 2021-06-07 08:11 | disposition home or self-care (01) | DRG 552 ==
LOC: ED 07:25
DX: M54.50 Low back pain, unspecified (principal); G89.29 Other chronic pain

== ENCOUNTER 2021-11-21 01:12 | Emergency (ER) | payer SELFPAY ==
[2021-11-21] VITALS (21 sets, daily range): BP systolic 120–155; BP diastolic 63–108
[~2021-11-21] VITALS: Ht 170.2 cm; Wt 80.0 kg
[2021-11-21 02:19] LABS: HEMATOCRIT 35.8 % (39.0-50.0); HEMOGLOBIN 11.4 g/dl (14.0-18.0); IMMATURE GRANULOCYTES 0.3 % (0.0-5.0); MEAN CELL VOLUME 84.2 fL CALC (80.0-100.0); MEAN CORPUSCULAR HGB 26.8 pG CALC (26.0-32.0); MEAN CORPUSCULAR HGB CONC 31.8 g/dL CAL (32.0-36.0); NEUT# 3.65 thou/uL (1.82-7.42); RED BLOOD COUNT 4.25 mill/uL (4.70-6.10); RED CELL DISTRI WIDTH 14.3 % (11.5-15.5)
[2021-11-21 02:28] LABS: ALBUMIN 4.6 g/dL (3.2-5.0); ALKALINE PHOSPHATASE 75 u/l (38-126); ANION GAP 15 (6-22 (CALC)); BILIRUBIN, TOTAL 1.3 mg/dL (0.0-1.4); BUN 21 mg/dL (8-23); BUN/CREATININE RATIO 20 (12-20 (CALC)); CARBON DIOXIDE 25 mmol/l (22-30); CHLORIDE 105 mmol/l (95-108); GFR FOR AFR.AMER. > 60 ML/MIN (>=60 (CALC)); GFR OTHER RACES > 60 ML/MIN (>=60 (CALC)); LIPASE 134 u/l (23-300); SGOT/AST 47 u/l (19-48); SODIUM 142 mmol/l (137-146)
[2021-11-21 02:41] LABS: URINE BILIRUBIN - DIPSTICK NEGATIVE (NEGATIVE); URINE BLOOD DIPSTICK NEGATIVE (NEGATIVE); URINE COLOR YELLOW; URINE GLUCOSE - DIPSTICK NEGATIVE (NEGATIVE); URINE KETONE NEGATIVE (NEGATIVE); URINE LEUK ESTERASE NEGATIVE (NEGATIVE); URINE PH 5.5 (4.5-8.0); URINE PROTEIN - DIPSTICK 100 mg/dL (NEG-TRACE); URINE SPECIFIC GRAVITY >=1.030
[2021-11-21 02:43] LABS: URINE NITRITE - DIPSTICK NEGATIVE (Negative)
[2021-11-21 02:55] LABS: URINE BACTERIA FEW hpf; URINE HYALINE CAST FEW lpf (NONE-RARE); URINE MUCUS FEW hpf (NONE-FEW); URINE SQUAMOUS EPITHELIAL CELL FEW EPI/hpf (0-FEW)
== END 2021-11-21 08:35 | disposition home or self-care (01) | DRG 392 ==
LOC: ED 01:12
PROVIDERS: Emergency Medicine
DX: R10.33 Periumbilical pain (principal); I10 Essential (primary) hypertension; E78.5 Hyperlipidemia, unspecified; Z20.822 Contact with and (suspected) exposure to COVID-19
CPT/HCPCS: Q9967

== ENCOUNTER 2022-02-09 18:14 | Emergency (ER) | payer MEDICAID ==
[~2022-02-09] VITALS: Ht 170.2 cm; Wt 86.3 kg
[2022-02-09 22:21] LABS: HEMATOCRIT 30.8 % (39.0-50.0); HEMOGLOBIN 9.8 g/dl (14.0-18.0); IMMATURE GRANULOCYTES 0.2 % (0.0-5.0); MEAN CELL VOLUME 73.7 fL CALC (80.0-100.0); MEAN CORPUSCULAR HGB 23.4 pG CALC (26.0-32.0); MEAN CORPUSCULAR HGB CONC 31.8 g/dL CAL (32.0-36.0); NEUT# 3.66 thou/uL (1.82-7.42); RED BLOOD COUNT 4.18 mill/uL (4.70-6.10); RED CELL DISTRI WIDTH 18.9 % (11.5-15.5)
[2022-02-09 22:39] LABS: ALBUMIN 3.9 g/dL (3.2-5.0); BILIRUBIN, TOTAL 1.7 mg/dL (0.0-1.4); TOTAL PROTEIN 7.6 g/dL (6.3-8.2)
[2022-02-09 22:40] LABS: CREATININE 2.9 mg/dL (0.7-1.3); POTASSIUM 4.9 mmol/l (3.5-5.1)
[2022-02-09 23:27] VITALS: BP 95/50
[2022-02-09 23:31] VITALS: BP 106/70
[2022-02-09 23:46] VITALS: BP 104/78
[2022-02-10 00:01] VITALS: BP 106/68
[2022-02-10 00:32] VITALS: BP 135/116
[2022-02-10 00:44] VITALS: BP 122/73
[2022-02-10 00:50] LABS: URINE BILIRUBIN - DIPSTICK NEGATIVE (NEGATIVE); URINE BLOOD DIPSTICK TRACE-INTACT (NEGATIVE); URINE COLOR YELLOW; URINE GLUCOSE - DIPSTICK NEGATIVE (NEGATIVE); URINE KETONE NEGATIVE (NEGATIVE); URINE LEUK ESTERASE NEGATIVE (NEGATIVE); URINE NITRITE - DIPSTICK NEGATIVE (Negative); URINE PROTEIN - DIPSTICK 100 mg/dL (NEG-TRACE); URINE SPECIFIC GRAVITY >=1.030
[2022-02-10 01:09] LABS: URINE BACTERIA MODERATE hpf; URINE SQUAMOUS EPITHELIAL CELL FEW EPI/hpf (0-FEW)
== END 2022-02-10 02:03 | disposition home or self-care (01) ==
LOC: ED 18:14
PROVIDERS: Family Medicine
DX: K59.00 Constipation, unspecified (principal); N17.9 Acute kidney failure, unspecified; I10 Essential (primary) hypertension; E78.5 Hyperlipidemia, unspecified
CPT/HCPCS: S0164

== ENCOUNTER 2022-03-19 08:17 | Emergency (ER) | payer SELFPAY ==
[~2022-03-19] VITALS: Ht 170.2 cm; Wt 86.0 kg
[2022-03-19 08:57] VITALS: BP 96/56
[2022-03-19 09:00] VITALS: BP 94/55
[2022-03-19] MEDS ORDERED: MOTRIN400 MG/TAB PO (09:22)
[2022-03-19] MEDS ORDERED: FLEXERIL5 M1 PO (09:22)
[2022-03-19 10:00] VITALS: BP 90/51; BP 94/55
== END 2022-03-19 10:11 | disposition home or self-care (01) | DRG 552 ==
LOC: ED 08:17
DX: M54.50 Low back pain, unspecified (principal); G89.29 Other chronic pain

== ENCOUNTER 2022-04-14 08:31 | Emergency (ER) | payer SELFPAY ==
[2022-04-14] VITALS (21 sets, daily range): BP systolic 42–132; BP diastolic 26–75
[~2022-04-14] VITALS: Ht 170.2 cm; Wt 86.1 kg
[~2022-04-14 08:31] MED LIST changes: +MOTRIN400 MG/TAB PO
[2022-04-14 09:00] LABS: BASO% 0.8 % (0-3); IMMATURE GRANULOCYTES 0.4 % (0.0-5.0); LYMPH% 17.8 % (15-41); MEAN CORPUSCULAR HGB 20.2 pG CALC (26.0-32.0); MEAN CORPUSCULAR HGB CONC 29.5 g/dL CAL (32.0-36.0); MONO% 16.2 % (2-13); NEUT# 3.12 thou/uL (1.82-7.42); NEUT% 61.8 % (42-76); RED BLOOD COUNT 3.46 mill/uL (4.70-6.10); RED CELL DISTRI WIDTH 22.5 % (11.5-15.5)
[2022-04-14 09:06] LABS: HEMATOCRIT 23.7 % (39.0-50.0); MEAN CELL VOLUME 68.5 fL CALC (80.0-100.0)
[2022-04-14 09:17] LABS: ALBUMIN 3.8 g/dL (3.2-5.0); ALKALINE PHOSPHATASE 112 u/l (38-126); ANION GAP 11 (6-22 (CALC)); BILIRUBIN, TOTAL 2.9 mg/dL (0.2-1.3); BUN 27 mg/dL (8-23); BUN/CREATININE RATIO 22 (12-20 (CALC)); CARBON DIOXIDE 22 mmol/l (22-30); CHLORIDE 106 mmol/l (95-108); CREATININE 1.2 mg/dL (0.7-1.3); GFR FOR AFR.AMER. > 60 ML/MIN (>=60 (CALC)); GFR OTHER RACES 60 ML/MIN (>=60 (CALC)); POTASSIUM 3.9 mmol/l (3.5-5.1); SGOT/AST 85 u/l (19-48); SODIUM 135 mmol/l (137-146); TOTAL PROTEIN 7.6 g/dL (6.3-8.2)
== END 2022-04-14 13:43 | disposition short-term general hospital (02) | DRG 313 ==
LOC: ED 08:31
PROVIDERS: Family Medicine
PROC: 30233N1 Transfusion of Nonautologous Red Blood Cells into Peripheral Vein, Percutaneous Approach (ICD-10-PCS; principal; 2022-04-14)
DX: R07.9 Chest pain, unspecified (principal); I24.8 Other forms of acute ischemic heart disease; I10 Essential (primary) hypertension; E78.5 Hyperlipidemia, unspecified; D64.9 Anemia, unspecified; E80.6 Other disorders of bilirubin metabolism
CPT/HCPCS: P9016; Q9967

== ENCOUNTER 2022-05-05 18:27 | Emergency (ER) | payer SELFPAY ==
[~2022-05-05] VITALS: Ht 170.2 cm; Wt 88.0 kg
[2022-05-05 20:21] VITALS: BP 116/71
[2022-05-05 20:31] VITALS: BP 121/68
[2022-05-05 20:45] VITALS: BP 121/82
[2022-05-05 21:00] VITALS: BP 114/70
[2022-05-05] MEDS ORDERED: ULTRAM50 MG PO (23:15)
[2022-05-05] MEDS ORDERED: CYCLOBENZAPRINE10 MG PO (23:15)
[2022-05-05 23:20] VITALS: BP 114/70
== END 2022-05-05 23:36 | disposition home or self-care (01) | DRG 313 ==
LOC: ED 18:27
DX: R07.9 Chest pain, unspecified (principal); E11.9 Type 2 diabetes mellitus without complications; I10 Essential (primary) hypertension; D64.9 Anemia, unspecified; E78.5 Hyperlipidemia, unspecified

== ENCOUNTER 2022-05-07 15:36 | Observation (INO) | payer SELFPAY ==
[~2022-05-07] VITALS: Ht 170.2 cm; Wt 90.6 kg
[2022-05-07] VITALS (11 sets, daily range): BP systolic 111–146; BP diastolic 61–101
[~2022-05-07 15:36] MED LIST changes: +ULTRAM50 MG PO
[2022-05-07 16:17] LABS: BASO% 0.3 % (0-3); HEMOGLOBIN 7.4 g/dl (14.0-18.0); IMMATURE GRANULOCYTES 0.2 % (0.0-5.0); LYMPH% 14.1 % (15-41); MEAN CELL VOLUME 84.7 fL CALC (80.0-100.0); MEAN CORPUSCULAR HGB 25.1 pG CALC (26.0-32.0); MEAN CORPUSCULAR HGB CONC 29.6 g/dL CAL (32.0-36.0); MONO% 16.7 % (2-13); NEUT# 4.06 thou/uL (1.82-7.42); NEUT% 66.7 % (42-76); RED BLOOD COUNT 2.95 mill/uL (4.70-6.10); RED CELL DISTRI WIDTH 25.6 % (11.5-15.5)
[2022-05-07 16:26] LABS: ALBUMIN 3.6 g/dL (3.2-5.0); ALKALINE PHOSPHATASE 94 u/l (38-126); ANION GAP 11 (6-22 (CALC)); BILIRUBIN, TOTAL 2.3 mg/dL (0.2-1.3); BUN 17 mg/dL (8-23); BUN/CREATININE RATIO 14 (12-20 (CALC)); CARBON DIOXIDE 25 mmol/l (22-30); CHLORIDE 106 mmol/l (95-108); CREATININE 1.3 mg/dL (0.7-1.3); GFR FOR AFR.AMER. > 60 ML/MIN (>=60 (CALC)); GFR OTHER RACES 55 ML/MIN (>=60 (CALC)); POTASSIUM 4.2 mmol/l (3.5-5.1); SGOT/AST 46 u/l (19-48); SODIUM 138 mmol/l (137-146); TOTAL PROTEIN 7.1 g/dL (6.3-8.2)
[2022-05-07] MEDS ORDERED: BUMETANIDE1 MG PO (16:55)
[2022-05-07] MEDS ORDERED: FLEXERIL5 M1 PO (16:57)
[2022-05-07] MEDS ORDERED: CARVEDILOL6.25 MG PO (17:01)
[2022-05-07] MEDS ORDERED: PROTONIX40 M2 PO (17:02)
[2022-05-07] MEDS ORDERED: ALDACTONE25 MG PO (17:04)
[2022-05-07] MEDS ORDERED: LIPITOR40 M1 PO (17:06)
[2022-05-08 00:30] VITALS: BP 129/73
[2022-05-08 03:23] VITALS: BP 128/73
[2022-05-08 04:00] VITALS: BP 128/73
[2022-05-08 04:37] LABS: HEMOGLOBIN 8.6 g/dl (14.0-18.0); MEAN CORPUSCULAR HGB 25.2 pG CALC (26.0-32.0); MEAN CORPUSCULAR HGB CONC 29.7 g/dL CAL (32.0-36.0); RED BLOOD COUNT 3.41 mill/uL (4.70-6.10); RED CELL DISTRI WIDTH 24.1 % (11.5-15.5)
[2022-05-08 04:48] LABS: ALBUMIN 3.5 g/dL (3.2-5.0); ALKALINE PHOSPHATASE 99 u/l (38-126); ANION GAP 13 (6-22 (CALC)); BUN 18 mg/dL (8-23); BUN/CREATININE RATIO 14 (12-20 (CALC)); CALCULATED LDLCHOLESTEROL 78 mg/dL (62-129 (CALC)); CARBON DIOXIDE 24 mmol/l (22-30); CHLORIDE 107 mmol/l (95-108); CREATININE 1.3 mg/dL (0.7-1.3); GFR FOR AFR.AMER. > 60 ML/MIN (>=60 (CALC)); GFR OTHER RACES 55 ML/MIN (>=60 (CALC)); HDL CHOLESTEROL 33 mg/dL (39.0-59.0); MAGNESIUM 1.7 mg/dL (1.6-2.3); POTASSIUM 4.2 mmol/l (3.5-5.1); SGOT/AST 44 u/l (19-48); SODIUM 140 mmol/l (137-146); TOTAL PROTEIN 6.9 g/dL (6.3-8.2); TOTAL TRIGLYCERIDES 61 mg/dl (0-149); VLDL CHOLESTROL 12 mg/dl (0-38 (CALC))
[2022-05-08 04:53] LABS: BILIRUBIN, TOTAL 3.4 mg/dL (0.2-1.3); CHOLESTEROL HDL RATIO 3.7 (<4.4 (CALC)); TOTAL CHOLESTEROL 123 mg/dl (0-199)
[2022-05-08 07:24] VITALS: BP 126/74
[2022-05-08 07:26] VITALS: BP 115/72
[2022-05-08 09:16] VITALS: BP 115/72
== END 2022-05-08 14:41 | disposition home or self-care (01) | DRG 313 ==
LOC: ED 15:36 → ED-I 19:30 → ED 19:58 → MS2 19:59
PROVIDERS: Family Medicine; ADMIT Internal Medicine; ATTEND Internal Medicine
PROC: 30233N1 Transfusion of Nonautologous Red Blood Cells into Peripheral Vein, Percutaneous Approach (ICD-10-PCS; principal; 2022-05-07)
DX: R07.9 Chest pain, unspecified (principal); D64.9 Anemia, unspecified; I11.0 Hypertensive heart disease with heart failure; I50.9 Heart failure, unspecified; E78.5 Hyperlipidemia, unspecified; K21.9 Gastro-esophageal reflux disease without esophagitis; F10.10 Alcohol abuse, uncomplicated
CPT/HCPCS: G0378; J1756; P9016; S0164

== ENCOUNTER 2022-06-14 09:43 | Inpatient (IN) | payer MEDICAID ==
[~2022-06-14] VITALS: Ht 170.2 cm; Wt 89.4 kg
[2022-06-14] VITALS (17 sets, daily range): BP systolic 111–141; BP diastolic 69–88
[~2022-06-14 09:43] MED LIST changes: +BUMETANIDE1 MG PO
[2022-06-14 10:17] LABS: BASO% 0.3 % (0-3); EOS% 0.9 % (0-8); HEMATOCRIT 26.9 % (39.0-50.0); HEMOGLOBIN 7.8 g/dl (14.0-18.0); IMMATURE GRANULOCYTES 0.5 % (0.0-5.0); LYMPH% 16.6 % (15-41); MEAN CORPUSCULAR HGB 22.3 pG CALC (26.0-32.0); MONO% 17.2 % (2-13); NEUT# 4.27 thou/uL (1.82-7.42); NEUT% 64.5 % (42-76); RED BLOOD COUNT 3.49 mill/uL (4.70-6.10); RED CELL DISTRI WIDTH 22.3 % (11.5-15.5)
[2022-06-14 10:28] LABS: MEAN CELL VOLUME 77.1 fL CALC (80.0-100.0)
[2022-06-14 10:32] LABS: ALBUMIN 3.7 g/dL (3.2-5.0); ALKALINE PHOSPHATASE 134 u/l (38-126); ANION GAP 12 (6-22 (CALC)); BILIRUBIN, TOTAL 2.4 mg/dL (0.2-1.3); BUN 20 mg/dL (8-23); BUN/CREATININE RATIO 20 (12-20 (CALC)); CARBON DIOXIDE 25 mmol/l (22-30); CHLORIDE 107 mmol/l (95-108); GFR FOR AFR.AMER. > 60 ML/MIN (>=60 (CALC)); GFR OTHER RACES > 60 ML/MIN (>=60 (CALC)); POTASSIUM 4.2 mmol/l (3.5-5.1); SODIUM 140 mmol/l (137-146); TOTAL PROTEIN 7.4 g/dL (6.3-8.2)
[2022-06-14 10:36] LABS: SGOT/AST 80 u/l (19-48)
[2022-06-14] MEDS ORDERED: ELAVIL25 M1 PO (16:16)
[2022-06-15] VITALS (7 sets, daily range): BP systolic 100–126; BP diastolic 49–77
[2022-06-15 00:50] LABS: BASO% 0.4 % (0-3); EOS% 1.6 % (0-8); HEMATOCRIT 25.8 % (39.0-50.0); HEMOGLOBIN 7.4 g/dl (14.0-18.0); IMMATURE GRANULOCYTES 0.6 % (0.0-5.0); LYMPH% 17.7 % (15-41); MEAN CELL VOLUME 77.2 fL CALC (80.0-100.0); MEAN CORPUSCULAR HGB 22.2 pG CALC (26.0-32.0); MEAN CORPUSCULAR HGB CONC 28.7 g/dL CAL (32.0-36.0); MONO% 21.2 % (2-13); NEUT# 3.01 thou/uL (1.82-7.42); NEUT% 58.5 % (42-76); RED BLOOD COUNT 3.34 mill/uL (4.70-6.10); RED CELL DISTRI WIDTH 21.9 % (11.5-15.5)
[2022-06-15 00:57] LABS: ALBUMIN 3.4 g/dL (3.2-5.0); ALKALINE PHOSPHATASE 141 u/l (38-126); ANION GAP 12 (6-22 (CALC)); BILIRUBIN, TOTAL 1.9 mg/dL (0.2-1.3); BUN 23 mg/dL (8-23); BUN/CREATININE RATIO 24 (12-20 (CALC)); CARBON DIOXIDE 26 mmol/l (22-30); CHLORIDE 106 mmol/l (95-108); CREATININE 0.9 mg/dL (0.7-1.3); GFR FOR AFR.AMER. > 60 ML/MIN (>=60 (CALC)); GFR OTHER RACES > 60 ML/MIN (>=60 (CALC)); MAGNESIUM 1.8 mg/dL (1.6-2.3); POTASSIUM 3.9 mmol/l (3.5-5.1); SGOT/AST 77 u/l (19-48); SODIUM 141 mmol/l (137-146); TOTAL PROTEIN 6.9 g/dL (6.3-8.2)
[2022-06-15 01:09] LABS: CHOLESTEROL HDL RATIO 4.5 (<4.4 (CALC))
[2022-06-16] VITALS (7 sets, daily range): BP systolic 110–137; BP diastolic 60–84
[2022-06-16 05:27] LABS: BASO% 0.4 % (0-3); EOS% 1.6 % (0-8); HEMOGLOBIN 7.2 g/dl (14.0-18.0); IMMATURE GRANULOCYTES 0.2 % (0.0-5.0); LYMPH% 17.2 % (15-41); MEAN CELL VOLUME 76.2 fL CALC (80.0-100.0); MEAN CORPUSCULAR HGB 22.9 pG CALC (26.0-32.0); MONO% 20.1 % (2-13); NEUT# 3.11 thou/uL (1.82-7.42); NEUT% 60.5 % (42-76); RED BLOOD COUNT 3.15 mill/uL (4.70-6.10); RED CELL DISTRI WIDTH 21.9 % (11.5-15.5)
[2022-06-16 05:45] LABS: ALBUMIN 3.3 g/dL (3.2-5.0); ALKALINE PHOSPHATASE 133 u/l (38-126); ANION GAP 11 (6-22 (CALC)); BILIRUBIN, TOTAL 1.6 mg/dL (0.2-1.3); BUN 18 mg/dL (8-23); BUN/CREATININE RATIO 22 (12-20 (CALC)); CARBON DIOXIDE 27 mmol/l (22-30); CHLORIDE 105 mmol/l (95-108); CREATININE 0.8 mg/dL (0.7-1.3); GFR FOR AFR.AMER. > 60 ML/MIN (>=60 (CALC)); GFR OTHER RACES > 60 ML/MIN (>=60 (CALC)); POTASSIUM 3.9 mmol/l (3.5-5.1); SGOT/AST 66 u/l (19-48); SODIUM 138 mmol/l (137-146); TOTAL PROTEIN 6.8 g/dL (6.3-8.2)
[2022-06-17] VITALS (12 sets, daily range): BP systolic 98–115; BP diastolic 47–65
[2022-06-17 05:31] LABS: BASO% 0.6 % (0-3); EOS% 1.5 % (0-8); HEMATOCRIT 22.7 % (39.0-50.0); IMMATURE GRANULOCYTES 0.2 % (0.0-5.0); LYMPH% 19.3 % (15-41); MEAN CELL VOLUME 75.7 fL CALC (80.0-100.0); MEAN CORPUSCULAR HGB 22.7 pG CALC (26.0-32.0); MONO% 20.2 % (2-13); NEUT# 3.18 thou/uL (1.82-7.42); NEUT% 58.2 % (42-76); RED CELL DISTRI WIDTH 22.3 % (11.5-15.5)
[2022-06-17 05:49] LABS: ALBUMIN 3.1 g/dL (3.2-5.0); ALKALINE PHOSPHATASE 134 u/l (38-126); ANION GAP 10 (6-22 (CALC)); BILIRUBIN, TOTAL 1.4 mg/dL (0.2-1.3); BUN 16 mg/dL (8-23); BUN/CREATININE RATIO 20 (12-20 (CALC)); CARBON DIOXIDE 27 mmol/l (22-30); CHLORIDE 105 mmol/l (95-108); CREATININE 0.8 mg/dL (0.7-1.3); GFR FOR AFR.AMER. > 60 ML/MIN (>=60 (CALC)); GFR OTHER RACES > 60 ML/MIN (>=60 (CALC)); MAGNESIUM 1.6 mg/dL (1.6-2.3); POTASSIUM 3.8 mmol/l (3.5-5.1); SGOT/AST 57 u/l (19-48); SODIUM 138 mmol/l (137-146); TOTAL PROTEIN 6.4 g/dL (6.3-8.2)
[2022-06-17 06:08] LABS: HEMOGLOBIN 6.8 g/dl (14.0-18.0)
[2022-06-18 00:20] VITALS: BP 116/58
[2022-06-18 06:44] VITALS: BP 100/51
[2022-06-18] MEDS ORDERED: BUMETANIDE1 MG PO (10:02)
[2022-06-18] MEDS ORDERED: ALDACTONE25 MG PO (10:02)
[2022-06-18] MEDS ORDERED: PROTONIX40 M2 PO (10:02)
[2022-06-18 10:12] LABS: BASO% 0.3 % (0-3); EOS% 0.9 % (0-8); HEMATOCRIT 23.6 % (39.0-50.0); IMMATURE GRANULOCYTES 0.3 % (0.0-5.0); LYMPH% 19.8 % (15-41); MEAN CELL VOLUME 76.6 fL CALC (80.0-100.0); MEAN CORPUSCULAR HGB 22.7 pG CALC (26.0-32.0); MEAN CORPUSCULAR HGB CONC 29.7 g/dL CAL (32.0-36.0); NEUT# 4.18 thou/uL (1.82-7.42); NEUT% 60.7 % (42-76); RED BLOOD COUNT 3.08 mill/uL (4.70-6.10); RED CELL DISTRI WIDTH 21.9 % (11.5-15.5)
[2022-06-18 10:14] LABS: ALBUMIN 3.2 g/dL (3.2-5.0); ALKALINE PHOSPHATASE 132 u/l (38-126); ANION GAP 9 (6-22 (CALC)); BILIRUBIN, TOTAL 1.9 mg/dL (0.2-1.3); BUN 16 mg/dL (8-23); BUN/CREATININE RATIO 20 (12-20 (CALC)); CARBON DIOXIDE 27 mmol/l (22-30); CHLORIDE 104 mmol/l (95-108); CREATININE 0.8 mg/dL (0.7-1.3); GFR FOR AFR.AMER. > 60 ML/MIN (>=60 (CALC)); GFR OTHER RACES > 60 ML/MIN (>=60 (CALC)); POTASSIUM 3.8 mmol/l (3.5-5.1); SGOT/AST 58 u/l (19-48); SODIUM 137 mmol/l (137-146); TOTAL PROTEIN 6.5 g/dL (6.3-8.2)
[2022-06-18 10:45] VITALS: BP 101/54
[2022-06-18 10:53] VITALS: BP 101/54
[2022-06-18 11:07] VITALS: BP 99/49
[2022-06-18 13:47] VITALS: BP 100/59
== END 2022-06-18 14:34 | disposition home or self-care (01) | DRG 291 ==
LOC: ED 09:43 → ED-I 12:30 → ED 12:46 → MS2 12:47
PROVIDERS: Family Medicine; Nurse Practitioner Family; ADMIT Internal Medicine; ATTEND Internal Medicine
PROC: 30233N1 Transfusion of Nonautologous Red Blood Cells into Peripheral Vein, Percutaneous Approach (ICD-10-PCS; principal; 2022-06-17)
PROC: 30233N1 Transfusion of Nonautologous Red Blood Cells into Peripheral Vein, Percutaneous Approach (ICD-10-PCS; 2022-06-18)
DX: I11.0 Hypertensive heart disease with heart failure (principal); I50.23 Acute on chronic systolic (congestive) heart failure; D50.9 Iron deficiency anemia, unspecified; I42.6 Alcoholic cardiomyopathy; F10.10 Alcohol abuse, uncomplicated; E78.5 Hyperlipidemia, unspecified; K21.9 Gastro-esophageal reflux disease without esophagitis; I34.0 Nonrheumatic mitral (valve) insufficiency; I37.1 Nonrheumatic pulmonary valve insufficiency; K29.70 Gastritis, unspecified, without bleeding; T50.1X6A Underdosing of loop [high-ceiling] diuretics, initial encounter; Z91.128 Patient's intentional underdosing of medication regimen for other reason; Z59.00 Homelessness unspecified; Z91.199 Patient's noncompliance with other medical treatment and regimen due to unspecified reason; Z20.822 Contact with and (suspected) exposure to COVID-19
CPT/HCPCS: J1756; P9016

== ENCOUNTER 2022-07-24 16:31 | Emergency (ER) | payer MEDICAID ==
[2022-07-24] VITALS (11 sets, daily range): BP systolic 93–116; BP diastolic 52–70
[~2022-07-24] VITALS: Ht 170.2 cm; Wt 84.0 kg
[~2022-07-24 16:31] MED LIST changes: +ELAVIL25 M1 PO
[2022-07-24 17:33] LABS: BASO% 0.4 % (0-3); EOS% 0.6 % (0-8); HEMATOCRIT 20.2 % (39.0-50.0); IMMATURE GRANULOCYTES 0.2 % (0.0-5.0); LYMPH% 16.2 % (15-41); MEAN CELL VOLUME 79.8 fL CALC (80.0-100.0); MEAN CORPUSCULAR HGB 24.1 pG CALC (26.0-32.0); MEAN CORPUSCULAR HGB CONC 30.2 g/dL CAL (32.0-36.0); MONO% 19.8 % (2-13); NEUT# 3.31 thou/uL (1.82-7.42); NEUT% 62.8 % (42-76); RED BLOOD COUNT 2.53 mill/uL (4.70-6.10); RED CELL DISTRI WIDTH 22.9 % (11.5-15.5)
[2022-07-24 17:35] LABS: HEMOGLOBIN 6.1 g/dl (14.0-18.0)
[2022-07-24 17:44] LABS: ALBUMIN 3.2 g/dL (3.2-5.0); ALKALINE PHOSPHATASE 94 u/l (38-126); BILIRUBIN, TOTAL 2.4 mg/dL (0.2-1.3); BUN 13 mg/dL (8-23); BUN/CREATININE RATIO 11 (12-20 (CALC)); CARBON DIOXIDE 32 mmol/l (22-30); CHLORIDE 94 mmol/l (95-108); CREATININE 1.2 mg/dL (0.7-1.3); GFR FOR AFR.AMER. > 60 ML/MIN (>=60 (CALC)); GFR OTHER RACES 60 ML/MIN (>=60 (CALC)); SODIUM 136 mmol/l (137-146); TOTAL PROTEIN 6.6 g/dL (6.3-8.2)
[2022-07-24 17:53] LABS: ANION GAP 13 (6-22 (CALC)); POTASSIUM 2.8 mmol/l (3.5-5.1); SGOT/AST 187 u/l (19-48)
== END 2022-07-24 22:32 | disposition short-term general hospital (02) ==
LOC: ED 16:31
PROVIDERS: Family Medicine
DX: I21.4 Non-ST elevation (NSTEMI) myocardial infarction (principal); E87.6 Hypokalemia; D50.9 Iron deficiency anemia, unspecified; I11.0 Hypertensive heart disease with heart failure; I50.9 Heart failure, unspecified; E78.5 Hyperlipidemia, unspecified
CPT/HCPCS: Q9967

== ENCOUNTER 2022-08-31 11:53 | Emergency (ER) | payer MEDICAID ==
[2022-08-31] VITALS (13 sets, daily range): BP systolic 82–123; BP diastolic 37–85
[~2022-08-31] VITALS: Ht 170.2 cm; Wt 84.0 kg
[2022-08-31 12:54] LABS: URINE BILIRUBIN - DIPSTICK NEGATIVE (NEGATIVE); URINE BLOOD DIPSTICK NEGATIVE (NEGATIVE); URINE COLOR YELLOW; URINE GLUCOSE - DIPSTICK NEGATIVE (NEGATIVE); URINE KETONE NEGATIVE (NEGATIVE); URINE LEUK ESTERASE NEGATIVE (NEGATIVE); URINE PH 6.5 (4.5-8.0); URINE PROTEIN - DIPSTICK NEGATIVE (NEG-TRACE); URINE UROBILINOGEN - DIPSTICK 0.2 E.U./dL (0.2)
[2022-08-31 12:56] LABS: URINE NITRITE - DIPSTICK NEGATIVE (Negative)
[2022-08-31 12:57] LABS: BASO% 0.2 % (0-3); EOS% 1.1 % (0-8); IMMATURE GRANULOCYTES 0.2 % (0.0-5.0); LYMPH% 17.2 % (15-41); MEAN CELL VOLUME 83.3 fL CALC (80.0-100.0); MEAN CORPUSCULAR HGB 25.3 pG CALC (26.0-32.0); MEAN CORPUSCULAR HGB CONC 30.4 g/dL CAL (32.0-36.0); MONO% 17.8 % (2-13); NEUT# 2.88 thou/uL (1.82-7.42); NEUT% 63.5 % (42-76); RED BLOOD COUNT 3.83 mill/uL (4.70-6.10); RED CELL DISTRI WIDTH 21.2 % (11.5-15.5)
[2022-08-31 13:09] LABS: ALBUMIN 3.5 g/dL (3.2-5.0); ALKALINE PHOSPHATASE 114 u/l (38-126); BILIRUBIN, TOTAL 2.9 mg/dL (0.2-1.3); BUN 13 mg/dL (8-23); BUN/CREATININE RATIO 12 (12-20 (CALC)); CARBON DIOXIDE 26 mmol/l (22-30); CHLORIDE 105 mmol/l (95-108); CREATININE 1.1 mg/dL (0.7-1.3); GFR FOR AFR.AMER. > 60 ML/MIN (>=60 (CALC)); GFR OTHER RACES > 60 ML/MIN (>=60 (CALC)); HEMATOCRIT 31.9 % (39.0-50.0); HEMOGLOBIN 9.7 g/dl (14.0-18.0); SODIUM 139 mmol/l (137-146); TOTAL PROTEIN 7.5 g/dL (6.3-8.2)
[2022-08-31 13:11] LABS: ANION GAP 12 (6-22 (CALC)); POTASSIUM 3.9 mmol/l (3.5-5.1); SGOT/AST 41 u/l (19-48)
[2022-08-31 13:40] LABS: TSH, 3RD GENERATION 2.35 uIU/mL (0.47 - 4.68)
== END 2022-08-31 16:00 | disposition home or self-care (01) ==
LOC: ED 11:53
PROVIDERS: Family Medicine
DX: R53.1 Weakness (principal); I11.0 Hypertensive heart disease with heart failure; I50.9 Heart failure, unspecified; K21.9 Gastro-esophageal reflux disease without esophagitis; E78.5 Hyperlipidemia, unspecified; Z20.822 Contact with and (suspected) exposure to COVID-19

== ENCOUNTER 2022-09-08 09:37 | Emergency (ER) | payer MEDICAID ==
[~2022-09-08] VITALS: Ht 170.2 cm; Wt 81.6 kg
[2022-09-08] VITALS (9 sets, daily range): BP systolic 56–121; BP diastolic 18–69
[2022-09-08 10:59] LABS: BASO% 0.4 % (0-3); EOS% 0.9 % (0-8); HEMATOCRIT 31.8 % (39.0-50.0); HEMOGLOBIN 9.9 g/dl (14.0-18.0); IMMATURE GRANULOCYTES 0.2 % (0.0-5.0); LYMPH% 15.5 % (15-41); MEAN CORPUSCULAR HGB 25.5 pG CALC (26.0-32.0); MEAN CORPUSCULAR HGB CONC 31.1 g/dL CAL (32.0-36.0); MONO% 17.6 % (2-13); NEUT# 3.46 thou/uL (1.82-7.42); NEUT% 65.4 % (42-76); RED BLOOD COUNT 3.88 mill/uL (4.70-6.10); RED CELL DISTRI WIDTH 21.3 % (11.5-15.5)
[2022-09-08 11:32] LABS: ALBUMIN 3.6 g/dL (3.2-5.0); ALKALINE PHOSPHATASE 140 u/l (38-126); ANION GAP 12 (6-22 (CALC)); BUN 22 mg/dL (8-23); BUN/CREATININE RATIO 20 (12-20 (CALC)); CARBON DIOXIDE 26 mmol/l (22-30); CHLORIDE 105 mmol/l (95-108); CREATININE 1.1 mg/dL (0.7-1.3); GFR FOR AFR.AMER. > 60 ML/MIN (>=60 (CALC)); GFR OTHER RACES > 60 ML/MIN (>=60 (CALC)); POTASSIUM 3.2 mmol/l (3.5-5.1); SGOT/AST 44 u/l (19-48); SODIUM 140 mmol/l (137-146); TOTAL PROTEIN 7.8 g/dL (6.3-8.2)
[2022-09-08 11:33] LABS: BILIRUBIN, TOTAL 5.1 mg/dL (0.2-1.3)
== END 2022-09-08 15:32 | disposition home or self-care (01) ==
LOC: ED 09:37
PROVIDERS: Family Medicine
DX: K52.9 Noninfective gastroenteritis and colitis, unspecified (principal); E87.6 Hypokalemia; I11.0 Hypertensive heart disease with heart failure; I50.9 Heart failure, unspecified; E78.5 Hyperlipidemia, unspecified; Z59.00 Homelessness unspecified

== ENCOUNTER 2022-09-11 17:18 | Emergency (ER) | payer MEDICAID ==
[2022-09-11] VITALS (8 sets, daily range): BP systolic 104–131; BP diastolic 66–87
[~2022-09-11] VITALS: Ht 170.2 cm; Wt 89.0 kg
[2022-09-11 18:52] LABS: BASO% 0.8 % (0-3); EOS% 0.8 % (0-8); HEMOGLOBIN 9.8 g/dl (14.0-18.0); IMMATURE GRANULOCYTES 0.8 % (0.0-5.0); MEAN CELL VOLUME 82.7 fL CALC (80.0-100.0); MEAN CORPUSCULAR HGB 25.3 pG CALC (26.0-32.0); MEAN CORPUSCULAR HGB CONC 30.6 g/dL CAL (32.0-36.0); NEUT# 3.32 thou/uL (1.82-7.42); NEUT% 66.6 % (42-76); RED BLOOD COUNT 3.87 mill/uL (4.70-6.10)
[2022-09-11 18:58] LABS: ALBUMIN 3.9 g/dL (3.2-5.0); ALKALINE PHOSPHATASE 130 u/l (38-126); BILIRUBIN, TOTAL 6.4 mg/dL (0.2-1.3); BUN 20 mg/dL (8-23); BUN/CREATININE RATIO 19 (12-20 (CALC)); CARBON DIOXIDE 25 mmol/l (22-30); CHLORIDE 102 mmol/l (95-108); CREATININE 1.1 mg/dL (0.7-1.3); GFR FOR AFR.AMER. > 60 ML/MIN (>=60 (CALC)); GFR OTHER RACES > 60 ML/MIN (>=60 (CALC)); LIPASE 74 u/l (23-300); SGOT/AST 51 u/l (19-48); SODIUM 137 mmol/l (137-146); TOTAL PROTEIN 8.4 g/dL (6.3-8.2)
[2022-09-11 19:10] LABS: ANION GAP 14 (6-22 (CALC))
[2022-09-11] MEDS ORDERED: PEPCID20 MG PO (19:54)
== END 2022-09-11 20:33 | disposition home or self-care (01) ==
LOC: ED 17:18
PROVIDERS: Family Medicine
DX: R10.84 Generalized abdominal pain (principal); I11.0 Hypertensive heart disease with heart failure; I50.9 Heart failure, unspecified; E78.5 Hyperlipidemia, unspecified

== ENCOUNTER 2022-09-23 12:22 | Emergency (ER) | payer MEDICAID ==
[~2022-09-23] VITALS: Ht 170.2 cm; Wt 81.6 kg
[~2022-09-23 12:22] MED LIST changes: +PEPCID20 MG PO
[2022-09-23 12:29] VITALS: BP 131/76
[2022-09-23 12:31] VITALS: BP 120/69
[2022-09-23 12:45] VITALS: BP 110/69
[2022-09-23] MEDS ORDERED: ERYTHROMYCIN O3.5 GM OU (12:48)
[2022-09-23] MEDS ORDERED: BENADRYL 25MG C25 MG PO (12:48)
[2022-09-23 13:01] VITALS: BP 132/70
[2022-09-23 13:10] VITALS: BP 132/70
== END 2022-09-23 13:15 | disposition home or self-care (01) ==
LOC: ED 12:22
DX: H10.9 Unspecified conjunctivitis (principal); G47.00 Insomnia, unspecified; I11.0 Hypertensive heart disease with heart failure; I50.9 Heart failure, unspecified; E78.5 Hyperlipidemia, unspecified

== ENCOUNTER 2022-10-19 14:45 | Observation (INO) | payer MEDICAID ==
[~2022-10-19] VITALS: Ht 170.2 cm; Wt 90.0 kg
[~2022-10-19 14:45] MED LIST changes: +BENADRYL 25MG C25 MG PO; +ERYTHROMYCIN O3.5 GM OU
[2022-10-19 14:51] VITALS: BP 107/67
--- NOTE | 2022-10-19 14:52 | NUR ---
PT TO ROOM13 VIA EMS FOR COUGH AND 'SOB FROM COUGHING'.
[2022-10-19 15:01] VITALS: BP 111/51
[2022-10-19 15:15] VITALS: BP 111/68
[2022-10-19 15:31] VITALS: BP 103/68
[2022-10-19 15:34] LABS: URINE BILIRUBIN - DIPSTICK Negative (NEGATIVE); URINE BLOOD DIPSTICK Negative (NEGATIVE); URINE GLUCOSE - DIPSTICK Negative (NEGATIVE); URINE KETONE Negative (NEGATIVE); URINE LEUK ESTERASE Negative (NEGATIVE); URINE NITRITE - DIPSTICK Negative (Negative); URINE PH 5.5 (4.5-8.0); URINE PROTEIN - DIPSTICK Negative (NEG-TRACE)
[2022-10-19 15:35] LABS: URINE COLOR Yellow
[2022-10-19 15:35] LABS: BASO% 0.5 % (0-3); EOS% 1.2 % (0-8); HEMATOCRIT 29.4 % (39.0-50.0); HEMOGLOBIN 9.4 g/dl (14.0-18.0); IMMATURE GRANULOCYTES 0.2 % (0.0-5.0); MEAN CELL VOLUME 80.1 fL CALC (80.0-100.0); MEAN CORPUSCULAR HGB 25.6 pG CALC (26.0-32.0); MONO% 19.1 % (2-13); NEUT# 2.63 thou/uL (1.82-7.42); RED BLOOD COUNT 3.67 mill/uL (4.70-6.10); RED CELL DISTRI WIDTH 22.3 % (11.5-15.5)
[2022-10-19 15:46] VITALS: BP 105/62
[2022-10-19 15:47] LABS: ALBUMIN 3.5 g/dL (3.2-5.0); ALKALINE PHOSPHATASE 104 u/l (38-126); ANION GAP 12 (6-22 (CALC)); BILIRUBIN, TOTAL 4.9 mg/dL (0.2-1.3); BUN 21 mg/dL (8-23); BUN/CREATININE RATIO 20 (12-20 (CALC)); CARBON DIOXIDE 26 mmol/l (22-30); CHLORIDE 103 mmol/l (95-108); CREATININE 1.1 mg/dL (0.7-1.3); GFR FOR AFR.AMER. > 60 ML/MIN (>=60 (CALC)); GFR OTHER RACES > 60 ML/MIN (>=60 (CALC)); SGOT/AST 86 u/l (19-48); SODIUM 138 mmol/l (137-146); TOTAL PROTEIN 7.7 g/dL (6.3-8.2)
[2022-10-19 16:00] LABS: POTASSIUM 2.9 mmol/l (3.5-5.1)
--- NOTE | 2022-10-19 16:20 | NUR ---
A MEAL TRAY WAS ORDERED FOR PT. CALL LIGHT IS WITHIN REACH OF PT. NAD AT THIS TIME.
--- NOTE | 2022-10-19 17:10 | NUR ---
MEAL TRAY WAS GIVEN TO PT.
--- NOTE | 2022-10-19 17:30 | NUR ---
CHECKED ON PT. IV CATHETER WAS LOOSE AND DRESING NEEDED TO BE CHANGED. A NEW IV TRANSPARENT DRESSING WAS APPLIED TO PT'S LEFT HAND 22 GAUGE IV.
--- NOTE | 2022-10-19 18:10 | NUR ---
ATTEMPT TO CALL REPORT TO MED/SURG FOR PT TO ROOM 273. WAS ADVISED THAT A CALL BACK WILL BE MADE.
--- NOTE | 2022-10-19 18:33 | NUR ---
PT IS NOW SITTING IN CHAIR BESIDE BED. NAD AT THIS TIME. CALL LIGHT IS WITHIN REACH OF PT.-
--- NOTE | 2022-10-19 18:50 | NUR ---
REPORT RECEIVED FROM MANUEL GUERRERO AND CARE OF PT ASSUMED AT THIS TIME
--- NOTE | 2022-10-19 19:15 | NUR ---
PT RESTING IN BEDSIDE CHAIR. RESP EVEN AND UNLABORED. A&O X 4. SKIN W/P/D. IV INFUSING IN LH W/ NO SWELLING/REDNESS. CLEARED DINNER TRAY. PT DENIES PAIN OR ANY COMPLAINTS AT THIS TIME. INFORMED PT OF PLAN OF CARE AND CONTINUED WAIT TIME AND HE VERBALIZED UNDERSTANDING. CALL LIGHT IN REACH.
--- NOTE | 2022-10-19 19:30 | NUR ---
PT REMAINS IN BEDSIDE CHAIR DRINKING AYUSH JACQUELINE. NO DISTRESS NOTED.
--- NOTE | 2022-10-19 20:06 | NUR ---
ATTEMPTED TO CALL REPORT TO MS, NURSE UNAVAILABLE
--- NOTE | 2022-10-19 20:30 | NUR ---
PT CONTINUES RESTING IN BEDSIDE CHAIR W/ NO DISTRESS.
--- NOTE | 2022-10-19 20:42 | NUR ---
ATTEMPTED TO CALL REPORT TO MS, NURSE UNAVAILABLE
--- NOTE | 2022-10-19 20:49 | NUR ---
PT TRANSPORTED TO [facility] VIA WHEELCHAIR IN STABLE CONDITION. RN WILL CALL FOR REPORT WHEN READY.
--- NOTE | 2022-10-19 20:52 | NUR ---
PATIENT ARRIVED TO FLOOR VIA WHEELCHAIR ACCOMPANIED BY Diana BARTH RNASSISTANT DIRECTOR OF PLANT OPERATIONS ASSESMENT COMPLETED AT THIS TIME. PATIENT HAS NO REPORTS OF PAIN OR CURRENT SHORTNESS OF BREATH. PATIENT DOES REPORT THAT HE IS HOMELESS AND IT IS HARD FOR HIM TO GO TO THE DR HE HAS NO TRANSPORT. PATIENT APPEARS CLEAN AND NICELY KEPT. DENIES ANY CURRENT HUNGER OR THRIST. PATIENT ORINTED TO ROOM AND CALL SYSTEM. UPDATED ON PLAN OF CARE. CALL LIGHT AND BEDSIDE TABLE WITHIN REACH.
--- NOTE | 2022-10-19 20:52 | NUR ---
REPORT RECEIVED FROM Eric CARBAJAL RN
[2022-10-19 21:35] VITALS: BP 102/67; BP 126/60
--- NOTE | 2022-10-20 | NUR ---
PATIENT UP AND BRUSHING HIS TEETH AT THIS TIME.
[2022-10-20 00:42] VITALS: BP 109/66
[2022-10-20 04:05] VITALS: BP 104/56
--- NOTE | 2022-10-20 04:30 | NUR ---
CASE RESOLUTION SPECIALIST AT BEDSIDE OBTAINING MORNING LABS.
[2022-10-20 05:24] LABS: BASO% 0.5 % (0-3); HEMATOCRIT 28.4 % (39.0-50.0); HEMOGLOBIN 9.3 g/dl (14.0-18.0); IMMATURE GRANULOCYTES 0.5 % (0.0-5.0); LYMPH% 21.2 % (15-41); MEAN CELL VOLUME 78.9 fL CALC (80.0-100.0); MEAN CORPUSCULAR HGB 25.8 pG CALC (26.0-32.0); MEAN CORPUSCULAR HGB CONC 32.7 g/dL CAL (32.0-36.0); MONO% 17.5 % (2-13); NEUT# 2.36 thou/uL (1.82-7.42); NEUT% 58.3 % (42-76); RED BLOOD COUNT 3.6 mill/uL (4.70-6.10); RED CELL DISTRI WIDTH 22.4 % (11.5-15.5)
[2022-10-20 05:42] LABS: ALBUMIN 3.3 g/dL (3.2-5.0); ALKALINE PHOSPHATASE 114 u/l (38-126); ANION GAP 10 (6-22 (CALC)); BILIRUBIN, TOTAL 5.3 mg/dL (0.2-1.3); BUN 22 mg/dL (8-23); BUN/CREATININE RATIO 20 (12-20 (CALC)); CARBON DIOXIDE 27 mmol/l (22-30); CHLORIDE 105 mmol/l (95-108); CREATININE 1.1 mg/dL (0.7-1.3); GFR FOR AFR.AMER. > 60 ML/MIN (>=60 (CALC)); GFR OTHER RACES > 60 ML/MIN (>=60 (CALC)); MAGNESIUM 1.8 mg/dL (1.6-2.3); POTASSIUM 3.4 mmol/l (3.5-5.1); SGOT/AST 79 u/l (19-48); SODIUM 139 mmol/l (137-146); TOTAL PROTEIN 7.1 g/dL (6.3-8.2)
--- NOTE | 2022-10-20 07:10 | NUR ---
BEDSIDE SHIFT REPORT, PT AWAKE ALERT AND ORIENTED TO NAME AND PLACE, NO C/O DISCOMFORT AT THIS TIME, IVF INFUSING, TELE MONITOR IN PLACE, CALL ROBERTO IN REACH AND BED LOCKED IN LOWEST POSITION.
[2022-10-20 07:43] VITALS: BP 95/57
[2022-10-20 07:45] VITALS: BP 98/52
[2022-10-20 10:01] VITALS: BP 117/76
[2022-10-20 12:00] VITALS: BP 110/66
--- NOTE | 2022-10-20 12:00 | NUR ---
C/O HEADACHE, CONCERN ADDRESSED WITH TYLENOL, PAIN RELIEVED.
[2022-10-20] MEDS ORDERED: KLOR-CON M2020 MEQ PO (13:14)
--- NOTE | 2022-10-20 16:28 | NUR ---
Discharge instructions given. Patient verbalizes understanding of same. Discharged in fair condition via Wheelchair to Home with *Other. All belongings sent with pt. PT STATES HE HAS NOT FAMILY THAT CARES ABOUT HIM AND DOES NOT HAVE A RIDE HOME BUT HE PLANS TO TAKE THE BUS TO A LOCATION WHERE HE HAS FRIENDS AND HOPES TO GET A RIDE HOME.
== END 2022-10-20 16:27 | disposition home or self-care (01) ==
LOC: ED 14:45 → ED-I 16:40 → ED 16:58 → MS2 16:59
PROVIDERS: Nurse Practitioner; ADMIT Student in an Organized Health Care Education/Training Program; ATTEND Student in an Organized Health Care Education/Training Program
DX: E87.6 Hypokalemia (principal); I11.0 Hypertensive heart disease with heart failure; I50.22 Chronic systolic (congestive) heart failure; E78.5 Hyperlipidemia, unspecified; I42.6 Alcoholic cardiomyopathy; F10.10 Alcohol abuse, uncomplicated; K21.9 Gastro-esophageal reflux disease without esophagitis; D50.9 Iron deficiency anemia, unspecified; I34.0 Nonrheumatic mitral (valve) insufficiency; I37.1 Nonrheumatic pulmonary valve insufficiency; Z20.822 Contact with and (suspected) exposure to COVID-19
CPT/HCPCS: G0378; J1650; J1756

== ENCOUNTER 2022-11-02 16:16 | Emergency (ER) | payer MEDICAID ==
[~2022-11-02] VITALS: Ht 170.2 cm; Wt 84.0 kg
[~2022-11-02 16:16] MED LIST changes: +KLOR-CON M2020 MEQ PO
[2022-11-02 18:36] LABS: EOS% 0.3 % (0-8); HEMOGLOBIN 10.4 g/dl (14.0-18.0); IMMATURE GRANULOCYTES 0.5 % (0.0-5.0); LYMPH% 14.4 % (15-41); MEAN CELL VOLUME 74.8 fL CALC (80.0-100.0); MEAN CORPUSCULAR HGB 25.9 pG CALC (26.0-32.0); MEAN CORPUSCULAR HGB CONC 34.7 g/dL CAL (32.0-36.0); MONO% 26.4 % (2-13); NEUT# 2.24 thou/uL (1.82-7.42); NEUT% 58.4 % (42-76); RED BLOOD COUNT 4.01 mill/uL (4.70-6.10); RED CELL DISTRI WIDTH 22.7 % (11.5-15.5)
[2022-11-02 18:47] LABS: POTASSIUM 3.2 mmol/l (3.5-5.1); TOTAL PROTEIN 6.9 g/dL (6.3-8.2)
[2022-11-02 18:49] LABS: BILIRUBIN, TOTAL 8.8 mg/dL (0.2-1.3); CREATININE 3.4 mg/dL (0.7-1.3)
[2022-11-02 19:50] LABS: URINE BLOOD DIPSTICK Moderate (NEGATIVE); URINE GLUCOSE - DIPSTICK Negative (NEGATIVE); URINE KETONE Trace mg/dL (NEGATIVE); URINE LEUK ESTERASE Negative (NEGATIVE); URINE NITRITE - DIPSTICK Negative (Negative); URINE PH 5.5 (4.5-8.0); URINE PROTEIN - DIPSTICK >=300 mg/dL (NEG-TRACE); URINE SPECIFIC GRAVITY 1.025
[2022-11-02 19:52] LABS: URINE COLOR Dark yellow
[2022-11-02 20:04] LABS: URINE AMORPH SEDIMENT MANY hpf (NONE-FER); URINE FINE GRAN CAST FEW lpf; URINE RENAL EPITHELIAL CELLS FEW hpf
[2022-11-02 22:06] VITALS: BP 100/53
== END 2022-11-02 22:06 | disposition short-term general hospital (02) ==
LOC: ED 16:16
PROVIDERS: Nurse Practitioner
DX: N17.9 Acute kidney failure, unspecified (principal); R79.89 Other specified abnormal findings of blood chemistry; I11.0 Hypertensive heart disease with heart failure; I50.9 Heart failure, unspecified; E78.5 Hyperlipidemia, unspecified
CPT/HCPCS: Q9967